=== PATIENT | male | born 1940 | race Caucasian/White ===

== ENCOUNTER 2020-03-09 20:46 | Emergency (ER) | payer MEDICARE ==
[2020-03-09 20:59] VITALS: PULSE 61; RESP 18; TEMP 98.2
--- NOTE | 2020-03-09 21:32 | ED ---
General Adult HPI - General Chief complaint: Shortness of Breath Stated complaint: Poss Covid Time Seen by Provider: 03/09/20 21:01 Source: patient Mode of arrival: EMS Limitations: no limitations - History of Present Illness Initial comments: Dictation was produced using [facility] dictation software. please excuse any grammatical, word or spelling errors. This patient was cared for during a federal and state declared state of emergency secondary to Covid 19 Chief Complaint: 71-year-old male presents today for coronavirus testing History of Present Illness: 71-year-old male who presents today for coronavirus testing. Patient denies any symptoms at this time. He did tell EMS who reported tenderness that he has been having URI type symptoms since October. States that he does have a cough or shortness of breath. He is not feverish. He denies any constitutional symptoms. 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 The ROS documented in this emergency department record has been reviewed and confirmed by me. Those systems with pertinent positive or negative responses have been documented in the HPI. All other systems are other negative and/or noncontributory. PHYSICAL EXAM: General Impression: Alert and oriented x3, not in acute distress HEENT: Normocephalic atraumatic, extra-ocular movements intact, pupils equal and reactive to light bilaterally, mucous membranes moist. Cardiovascular: Heart regular rate and rhythm Chest: Able to complete full sentences, no retractions, no tachypnea Abdomen: abdomen soft, non-tender, non-distended, no organomegaly Musculoskeletal: Pulses present and equal in all extremities, no peripheral edema Motor: no focal deficits noted Neurological: CN II-XII grossly intact, no focal motor or sensory deficits noted Skin: Intact with no visualized rashes Psych: Normal affect and mood ED course: 79-year-old male presents today for request of coronavirus testing. Vital signs upon arrival are within acceptable limits. Physical examination is benign.Chest x-ray shows findings to suggest mild CHF. Pending coronavirus study. Patient is discharge she is notified that he will receive the results in 24-48 hours. Patient continues to endorse that he feels well. He denies any shortness of breath. Patient will be discharged. Review of Systems ROS Statement: Those systems with pertinent positive or pertinent negative responses have been documented in the HPI. ROS Other: All systems not noted in ROS Statement are negative. Past Medical History Past Medical History: GERD/Reflux, Hyperlipidemia, Hypertension History of Any Multi-Drug Resistant Organisms: None Reported Additional Past Surgical History / Comment(s): prosthetic left eye Past Psychological History: No Psychological Hx Reported Smoking Status: Never smoker Past Alcohol Use History: None Reported Past Drug Use History: None Reported General Exam Limitations: no limitations Course Vital Signs 03/09/20 03/09/20 03/09/20 20:48 20:57 21:00 Temperature 98.2 F Pulse Rate 61 Respiratory 18 Rate Blood Pressure 103/71 103/71 O2 Sat by Pulse 96 90 L 100 Oximetry Disposition Clinical Impression: Encounter for laboratory testing for COVID-19 virus Disposition: HOME SELF-CARE Condition: Good Instructions (If sedation given, give patient instructions): Upper Respiratory Infection (ED) Additional Instructions: Please follow-up with cardiology. Your coronavirus testing should result in 24- 48 hours. Please call the emergency department back in [phone] hours to follow- up with test results. Your x-ray today showed findings to suggest congestive heart failure. Please follow up with her primary care physician for outpatient management of this. Is patient prescribed a controlled substance at d/c from ED?: No Referrals: Josemanuel Xiong MD [Primary Care Provider] - 1-2 days Time of Disposition: 22:57
--- NOTE | 2020-03-09 22:02 | XR ---
EXAMINATION TYPE: XR chest 1V portable DATE OF EXAM: 03/09/2020 COMPARISON: NONE HISTORY: Short of breath TECHNIQUE: Single view FINDINGS: Heart is enlarged. There is some pulmonary interstitial edema. There is blunting of the cos tophrenic angles. Bony thorax appears intact. IMPRESSION: Pulmonary interstitial mild edema with pleural effusions and cardiomegaly suggestive of s ome mild chronic congestive heart failure.
[2020-03-09 23:03] VITALS: BP 107/78
== END 2020-03-09 23:43 | disposition home or self-care (01) ==
LOC: EC 20:46
DX: Z20.828 Contact with and (suspected) exposure to other viral communicable diseases (principal)
CPT/HCPCS: 71045; 87635; 99285

== ENCOUNTER 2020-04-11 20:12 | Inpatient (IN) | payer MEDICARE, OTHER ==
[2020-04-11 20:43] LABS: Glucose,Whole Blood 101 mg/dL (75-99)
--- NOTE | 2020-04-11 20:43 | ED ---
General Adult HPI - General Chief complaint: Fall Stated complaint: fall Time Seen by Provider: 04/11/20 20:14 Source: patient, EMS Mode of arrival: EMS Limitations: no limitations - History of Present Illness Initial comments: Dictation was produced using [facility] dictation software. please excuse any grammatical, word or spelling errors. This patient was cared for during a federal and state declared state of emergency secondary to Covid 19 Chief Complaint: 80-year-old male with past medical history of hypertension presents after multiple falls. History of Present Illness: 80-year-old male he presents with multiple falls. Patient states he fell once 2 days ago and today. Patient states that he lives at home by himself. Reports that he was sitting in a chair when all of a sudden he fell to the ground. He didn't strike his head. Denies any loss of consciousness. Patient denies any pain complaints except for some facial pain. Denies any neck pain or extremity pain. Patient is unsure if he syncopized. The ROS documented in this emergency department record has been reviewed and confirmed by me. Those systems with pertinent positive or negative responses have been documented in the HPI. All other systems are other negative and/or noncontributory. PHYSICAL EXAM: General Impression: Alert and oriented x3, not in acute distress HEENT: Prosthetic left eye, ecchymoses of the left face, no lacerations, no septal hematoma extra-ocular movements intact, pupils equal and reactive to light bilaterally, mucous membranes moist. Cardiovascular: Heart regular rate and rhythm Chest: Able to complete full sentences, no retractions, no tachypnea Abdomen: abdomen soft, non-tender, non-distended, no organomegaly Musculoskeletal: Pulses present and equal in all extremities, no peripheral edema Motor: no focal deficits noted Neurological: CN II-XII grossly intact, no focal motor or sensory deficits noted Skin: Intact with no visualized rashes Psych: Normal affect and mood ED course: 80-year-old male presents after fall. He is very disheveled at bedside and has poor social situation and is unlikely able to care for himself. Laboratory evaluation obtained. CBC unremarkable. Coag panel is unremarkable. Metabolic panel shows elevated renal markers concerning for dehydration. Nonspecific elevation of liver enzymes. Troponin of 0.358. Chest x-ray shows no onset right-sided pleural effusion. Computed to mography scan of the head and C-spine shows no acute processes. Pelvis x-rays negative. Patient reevaluated at bedside and continues to deny any symptoms of dyspnea or chest pain. Patient started on heparin for elevated troponin and concern of non-ST segment elevation TN. Patient agreeable with disposition. Discussed patient case with Dr. willett is willing to accept patient's care. EKG interpretation: Ventricular rate 84, sinus rhythm, DC interval 160, QRS 106, QTC 449. No DC prolongation, no QTC prolongation, no ST or T-wave changes noted. Diffuse ST depressions noted in the lateral precordial leads. No old EKG for comparison Repeat EKG was obtained showing no dynamic changes. Ventricular rate 82, normal sinus rhythm,. Interval 170, QRS 108, QTc 464 patient furthermore denies any chest symptoms. - Related Data Home Medications Medication Instructions Recorded Confirmed Aspirin EC [Ecotrin Low Dose] 81 mg PO HS 04/11/20 04/11/20 Thyroid Unknown 1 tab PO DAILY 04/11/20 04/11/20 Allergies Allergy/AdvReac Type Severity Reaction Status Date / Time No Known Allergies Allergy Verified 04/11/20 20:43 Review of Systems ROS Statement: Those systems with pertinent positive or pertinent negative responses have been documented in the HPI. ROS Other: All systems not noted in ROS Statement are negative. Past Medical History Past Medical History: GERD/Reflux, Hyperlipidemia, Hypertension History of Any Multi-Drug Resistant Organisms: None Reported Additional Past Surgical History / Comment(s): prosthetic left eye Past Psychological History: No Psychological Hx Reported Smoking Status: Never smoker Past Alcohol Use History: None Reported Past Drug Use History: None Reported General Exam Limitations: no limitations Course Vital Signs 04/11/20 04/11/20 20:13 21:23 Temperature 99.1 F Pulse Rate 85 76 Respiratory 16 16 Rate Blood Pressure 98/64 105/75 O2 Sat by Pulse 93 L 98 Oximetry Medical Decision Making - Lab Data Result diagrams: 04/11/20 20:26 04/11/20 20:26 Lab Results 04/11/20 04/11/20 04/11/20 Range/Units 20:26 20:26 20:26 WBC 5.9 (3.8-10.6) k/uL RBC 4.35 (4.30-5.90) m/uL Hgb 12.5 L (13.0-17.5) gm/dL Hct 40.3 (39.0-53.0) % MCV 92.6 (80.0-100.0) fL MCH 28.8 (25.0-35.0) pg MCHC 31.1 (31.0-37.0) g/dL RDW 15.4 (11.5-15.5) % Plt Count 123 L (150-450) k/uL Neutrophils % 73 % Lymphocytes % 14 % Monocytes % 8 % Eosinophils % 2 % Basophils % 1 % Neutrophils # 4.3 (1.3-7.7) k/uL Lymphocytes # 0.8 L (1.0-4.8) k/uL Monocytes # 0.5 (0-1.0) k/uL Eosinophils # 0.1 (0-0.7) k/uL Basophils # 0.1 (0-0.2) k/uL Hypochromasia Slight PT 11.8 (9.0-12.0) sec INR 1.2 H (<1.2) APTT 30.2 H (22.0-30.0) sec Sodium 140 (137-145) mmol/L Potassium 4.9 (3.5-5.1) mmol/L Chloride 111 H (98-107) mmol/L Carbon Dioxide 20 L (22-30) mmol/L Anion Gap 9 mmol/L BUN 42 H (9-20) mg/dL Creatinine 1.56 H (0.66-1.25) mg/dL Est GFR (CKD-EPI)AfAm 48 (>60 ml/min/1.73 sqM) Est GFR (CKD-EPI)NonAf 42 (>60 ml/min/1.73 sqM) Glucose 110 H (74-99) mg/dL POC Glucose (mg/dL) (75-99) mg/dL POC Glu [employer] Reviewer ID Plasma Lactic Acid Christian (0.7-2.0) mmol/L Calcium 9.1 (8.4-10.2) mg/dL Magnesium 2.4 H (1.6-2.3) mg/dL Total Bilirubin 1.1 (0.2-1.3) mg/dL AST 167 H (17-59) U/L ALT 210 H (4-49) U/L Alkaline Phosphatase 136 H (38-126) U/L Creatine Kinase 239 H (55-170) U/L Troponin I (0.000-0.034) ng/mL Total Protein 6.9 (6.3-8.2) g/dL Albumin 3.8 (3.5-5.0) g/dL 04/11/20 04/11/20 04/11/20 Range/Units 20:26 20:26 20:41 WBC (3.8-10.6) k/uL RBC (4.30-5.90) m/uL Hgb (13.0-17.5) gm/dL Hct (39.0-53.0) % MCV (80.0-100.0) fL MCH (25.0-35.0) pg MCHC (31.0-37.0) g/dL RDW (11.5-15.5) % Plt Count (150-450) k/uL Neutrophils % % Lymphocytes % % Monocytes % % Eosinophils % % Basophils % % Neutrophils # (1.3-7.7) k/uL Lymphocytes # (1.0-4.8) k/uL Monocytes # (0-1.0) k/uL Eosinophils # (0-0.7) k/uL Basophils # (0-0.2) k/uL Hypochromasia PT (9.0-12.0) sec INR (<1.2) APTT (22.0-30.0) sec Sodium (137-145) mmol/L Potassium (3.5-5.1) mmol/L Chloride (98-107) mmol/L Carbon Dioxide (22-30) mmol/L Anion Gap mmol/L BUN (9-20) mg/dL Creatinine (0.66-1.25) mg/dL Est GFR (CKD-EPI)AfAm (>60 ml/min/1.73 sqM) Est GFR (CKD-EPI)NonAf (>60 ml/min/1.73 sqM) Glucose (74-99) mg/dL POC Glucose (mg/dL) 101 H (75-99) mg/dL POC Glu [employer] Reviewer ID Anika Koroma Plasma Lactic Acid Christian 1.6 (0.7-2.0) mmol/L Calcium (8.4-10.2) mg/dL Magnesium (1.6-2.3) mg/dL Total Bilirubin (0.2-1.3) mg/dL AST (17-59) U/L ALT (4-49) U/L Alkaline Phosphatase (38-126) U/L Creatine Kinase (55-170) U/L Troponin I 0.358 H* (0.000-0.034) ng/mL Total Protein (6.3-8.2) g/dL Albumin (3.5-5.0) g/dL Disposition Clinical Impression: Elevated troponin, Syncopal episodes Disposition: ADMITTED IP TO THIS HOSP Condition: Fair Referrals: Josemanuel Xiong MD [Primary Care Provider] - 1-2 days Decision Time: 22:13
--- NOTE | 2020-04-11 20:45 | CT ---
EXAMINATION TYPE: CT brain claudetteine wo con DATE OF EXAM: 04/11/2020 COMPARISON: HISTORY: Frequent falls. CT DLP: 1383.6 mGycm Automated exposure control for dose reduction was used. TECHNIQUE: CT scan of the head and cervical spine are performed without contrast. FINDINGS: There is no acute intracranial hemorrhage, mass effect, or midline shift identified. The ventricles and sulci are within normal limits in size. The globes are intact and the visualized sin uses are clear. There is cortical atrophy. Periventricular white matter shows patchy low attenuation. Cerebral vascular calcifications are present. Cervical spine is visualized in its entirety from C1 through upper thoracic levels and demonstrates n ear anatomic alignment without evidence of acute fracture or dislocation. There is anterolisthesis gr ebony 1 C4-5. Loss of disc height is present at C4-5, C5-6, C6-7 and C7-T1, there is multilevel spondyl osis. Prevertebral soft tissue appears within normal limits. The C1-C2 articulation is unremarkable. Multilevel facet arthropathy, foraminal encroachment. Incidental note made of a right pleural effusi on greater than left. IMPRESSION: 1. There is no acute fracture or dislocation evident in the cervical spine. 2. No acute intracranial hemorrhage, mass effect, or midline shift is seen. 3. Bilateral pleural effusions right greater than left.
[2020-04-11 20:48] LABS: Basophils # (A) 0.1 k/uL (0-0.2); Basophils % (A) 1 %; Eosinophils # (A) 0.1 k/uL (0-0.7); Eosinophils % (A) 2 %; HCT 40.3 % (39.0-53.0); HGB 12.5 gm/dL (13.0-17.5); Hypochromasia Slight; Lymphocytes # (A) 0.8 k/uL (1.0-4.8); Lymphocytes % (A) 14 %; MCH 28.8 pg (25.0-35.0); MCHC 31.1 g/dL (31.0-37.0); MCV 92.6 fL (80.0-100.0); Mean Platelet Volume 9.9; Monocytes # (A) 0.5 k/uL (0-1.0); Monocytes % (A) 8 %; Neutrophils # (A) 4.3 k/uL (1.3-7.7); Neutrophils % (A) 73 %; Platelet Count 123 k/uL (150-450); RBC 4.35 m/uL (4.30-5.90); RDW 15.4 % (11.5-15.5); WBC 5.9 k/uL (3.8-10.6)
[2020-04-11 21:06] LABS: INR 1.2 (<1.2); Partial Thromboplastin Time 30.2 sec (22.0-30.0); Prothrombin Time 11.8 sec (9.0-12.0)
[2020-04-11 21:08] LABS: Albumin 3.8 g/dL (3.5-5.0); Calcium 9.1 mg/dL (8.4-10.2); Magnesium 2.4 mg/dL (1.6-2.3); Potassium 4.9 mmol/L (3.5-5.1); Total Bilirubin 1.1 mg/dL (0.2-1.3); Total Protein 6.9 g/dL (6.3-8.2)
--- NOTE | 2020-04-11 21:11 | XR ---
EXAMINATION TYPE: XR chest 1V portable DATE OF EXAM: 04/11/2020 COMPARISON: Prior chest x-ray 03/09/2020 HISTORY: Trauma and pain, abnormal chest x-ray TECHNIQUE: Single frontal view of the chest is obtained. FINDINGS: The heart is enlarged. Central vascularity is prominent. There is blunting of the right co stophrenic angle, obscured right hemidiaphragm. Perihilar vascular indistinctness is noted. There is no pneumothorax. IMPRESSION: Correlate for congestive heart failure, probable right pleural effusion.
--- NOTE | 2020-04-11 21:13 | XR ---
AP pelvis HISTORY: Trauma and pain Single frontal view of the pelvis. Patient is rotated. Bone mineralization is reduced. Joint spaces and alignment are maintained. Benign -appearing calcifications are present within the pelvis. Scoliotic curvature is suspected in the lumb ar spine. There are atherosclerotic vascular calcifications present. IMPRESSION: No fracture or dislocation evident.
[2020-04-11] MEDS ORDERED: HEPARIN SODIUM,PORCINE 5,000 UNIT/ML 1 ML VIAL IV PRN (21:25)
[2020-04-11] MEDS ORDERED: HEPARIN SODIUM,PORCINE 5,000 UNIT/ML 1 ML VIAL IV ONE (21:25)
[2020-04-11] MEDS ORDERED: ASPIRIN 81 MG PO STA (21:27)
[2020-04-11] MEDS ORDERED: SODIUM CHLORIDE 0.9% 1,000 ML IV STA (21:28)
[2020-04-11] MEDS: HEPARIN SOD,PORK IN 0.45% NACL 25,000 UNIT in 0.45% NACL 1 250ML.BAG IV SCH (21:42)
[2020-04-12] MEDS ORDERED: NITROGLYCERIN SL TABS 0.4 MG TAB SUBLINGUAL PRN (00:27)
[2020-04-12] MEDS ORDERED: MORPHINE SULFATE 4 MG/ML SYRINGE IV PRN (00:27)
[2020-04-12] MEDS: HEPARIN SOD,PORK IN 0.45% NACL 25,000 UNIT in 0.45% NACL 1 250ML.BAG IV SCH (04:35)
[2020-04-12 09:39] LABS: D-Dimer 0.66 mg/L FEU (<0.60); Partial Thromboplastin Time 90.4 sec (22.0-30.0)
--- NOTE | 2020-04-12 10:46 | ECHOF ---
Referral Reason:elevTrop MEASUREMENTS -------- HEIGHT: 177.8 cm WEIGHT: 84.8 kg BP: 110/80 RVIDd: 3.5 cm (< 3.3) IVSd: 1.4 cm (0.6 - 1.1) LVIDd: 5.3 cm (3.9 - 5.3) LVPWd: 1.2 cm (0.6 - 1.1) IVSs: 1.8 cm LVIDs: 5.0 cm LVPWs: 1.4 cm LA Diam: 4.1 cm (2.7 - 3.8) LAESV Index (A-L): 42.09 ml/m Ao Diam: 3.4 cm (2.0 - 3.7) AV Cusp: 0.6 cm (1.5 - 2.6) MV EXCURSION: 13.536 mm (> 18.000) MV EF SLOPE: 24 mm/s (70 - 150) EPSS: 2.3 cm AV maxP.93 mmHg AV meanP.36 mmHg RAP: 15.00 mmHg RVSP: 54.75 mmHg FINDINGS -------- This was a technically good study. The left ventricular size is normal. There is moderate concentric left ventricular hypertrophy. O verall left ventricular systolic function is severely impaired with, an EF between 20 - 25 %. Basal inferior LV wall motion is hypokinetic. Basal inferoseptal LV wall motion is hypokinetic. Mid inferior LV wall motion is hypokinetic. Mid inferoseptal LV wall motion is hypokinetic. Apical inferior LV wall motion is hypokinetic. Apical septum LV wall motion is hypokinetic. The right ventricle is mildly enlarged. LA is severely dilated >40 ml/m2 The right atrium is normal in size. Interatrial and interventricular septum intact. 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 There is [id number] aortic regurgitation. Moderate to severe aortic stenosis with peak/mean pressure gradient of 37.93mmHg / 18.36mmHg, the aortic valve area by continuity equation is 1.4cm. Peak/mean gradient across the Aortic Valve is 37.93mmHg / 1 8.36mmHg. The mitral valve leaflets are mildly thickened. Mild mitral annular calcification present. Mild m itral regurgitation is present. Mild tricuspid regurgitation present. There is moderate to severe pulmonary hypertension. The rig ht ventricular systolic pressure, as measured by Doppler, is 54.75mmHg. Moderate pulmonic regurgitation. The aortic root size is normal. The inferior vena cava is dilated with poor inspiratory collapse which is consistent with estimated r ight atrial pressure of 15 mmHg. There is no pericardial effusion. CONCLUSIONS -------- 1. This was a technically good study. 2. The left ventricular size is normal. 3. There is moderate concentric left ventricular hypertrophy. 4. Overall left ventricular systolic function is severely impaired with, an EF between 20 - 25 %. 5. Basal inferior LV wall motion is hypokinetic. 6. Basal inferoseptal LV wall motion is hypokinetic. 7. Mid inferior LV wall motion is hypokinetic. 8. Mid inferoseptal LV wall motion is hypokinetic. 9. Apical inferior LV wall motion is hypokinetic. 10. Apical septum LV wall motion is hypokinetic. 11. The right ventricle is mildly enlarged. 12. LA is severely dilated >40 ml/m2 13. The right atrium is normal in size. 14. Interatrial and interventricular septum intact. 15. 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 16. There is [id number] aortic regurgitation. 17. Moderate to severe aortic stenosis with peak/mean pressure gradient of 37.93mmHg / 18.36mmHg, the aortic valve area by continuity equation is 1.4cm. 18. Peak/mean gradient across the Aortic Valve is 37.93mmHg / 18.36mmHg. 19. The mitral valve leaflets are mildly thickened. 20. Mild mitral annular calcification present. 21. Mild mitral regurgitation is present. 22. Mild tricuspid regurgitation present. 23. There is moderate to severe pulmonary hypertension. 24. The right ventricular systolic pressure, as measured by Doppler, is 54.75mmHg. 25. Moderate pulmonic regurgitation. 26. The aortic root size is normal. 27. The inferior vena cava is dilated with poor inspiratory collapse which is consistent with estimat ed right atrial pressure of 15 mmHg. 28. There is no pericardial effusion. FAMILY NURSE: Mayela Graham RDCS
[2020-04-12] MEDS: FUROSEMIDE 10 MG/ML 4 ML VIAL IV SCH ×2 (11:57→21:41)
--- NOTE | 2020-04-12 11:58 | P.HPIM ---
History of Present Illness patient is a 10-year-old male came in because of the syncope and falls patient has bruising all over the face. Patient was comparing of her shots of breath and orthopnea patient does have elevated JVD along with elevated BNP and chest x-ray showing pulmonary edema. Patient has mildly elevated troponinsbut stable implanted 0.358, 0.398 and 0.296 with highly elevated BNP of 16,900. Patient is alert oriented 3. Patient had any fever chills cough. Patient or any chest pain. EKG showing some T-wave inversions in lead 2 L 3 and aVFan echo cardiac exam was ordered a have the echo reports at this time which showed EF of 20-25% with the basal inferior LV motion hypokinesis inferior septal motion hypokinesis and multiple other almost abnormality is consistent with acute microinfarction consistent with changes in the EKG.unsure patient had a syncopal episode but patient is able to provide good histamine appears to that she he had a syncopal episode Review of Systems REVIEW OF SYSTEMS: CONSTITUTIONAL: No fever, no malaise, no fatigue. HEENT: No recent visual problems or hearing problems. Denied any sore throat. CARDIOVASCULAR: No chest pain PND, no palpitations, PULMONARY: no cough, no hemoptysis. GASTROINTESTINAL: No diarrhea, no nausea, no vomiting, no abdominal pain. NEUROLOGICAL: No headaches, no weakness, no numbness. HEMATOLOGICAL: Denies any bleeding or petechiae. GENITOURINARY: Denies any burning micturition, frequency, or urgency. MUSCULOSKELETAL/RHEUMATOLOGICAL: Denies any joint pain, swelling, or any muscle pain. ENDOCRINE: Denies any polyuria or polydipsia. The rest of the 14-point review of systems is negative. Past Medical History Past Medical History: GERD/Reflux, Hyperlipidemia, Hypertension History of Any Multi-Drug Resistant Organisms: None Reported Additional Past Surgical History / Comment(s): prosthetic left eye Additional Past Anesthesia/Blood Transfusion Reaction / Comment(s): Anesthesia insomnia, never recieved blood Past Psychological History: No Psychological Hx Reported Smoking Status: Never smoker Past Alcohol Use History: None Reported Past Drug Use History: None Reported - Past Family History Father Family Medical History: Renal Disease Mother Family Medical History: Renal Disease Medications and Allergies Home Medications Medication Instructions Recorded Confirmed Type Aspirin EC [Ecotrin Low Dose] 81 mg PO HS 04/11/20 04/11/20 History Atorvastatin [Lipitor] 40 mg PO HS 04/12/20 04/12/20 History Famotidine [Pepcid] 20 mg PO HS 04/12/20 04/12/20 History Furosemide [Lasix] 20 mg PO DAILY 04/12/20 04/12/20 History Levothyroxine Sodium [Synthroid] 50 mcg PO DAILY 04/12/20 04/12/20 History Lisinopril [Prinivil] 5 mg PO HS 04/12/20 04/12/20 History Metoprolol Succinate [Toprol XL] 25 mg PO HS 04/12/20 04/12/20 History Multivitamin/Iron/Folic Acid 1 tab PO HS 04/12/20 04/12/20 History [Centrum Adults Tablet] Margie-3 Fatty Acids/Fish Oil [Fish 1 cap PO HS 04/12/20 04/12/20 History Oil 1,000 mg Softgel] Allergies Allergy/AdvReac Type Severity Reaction Status Date / Time No Known Allergies Allergy Verified 04/11/20 20:43 Physical Exam Vitals: Vital Signs Temp Pulse Pulse Resp BP BP Pulse Ox 04/12/20 08:39 97.9 F 85 18 113/69 95 04/12/20 07:36 80 18 110/80 100 04/12/20 05:30 80 18 110/80 100 04/12/20 00:32 80 18 108/75 99 04/11/20 23:39 73 16 98 04/11/20 21:23 76 16 105/75 98 04/11/20 20:13 99.1 F 85 16 98/64 93 L Intake and Output 04/11/20 04/12/20 04/12/20 22:59 06:59 14:59 Intake Total 58.833 45.973 Balance 58.833 45.973 Intake: Intake, IV Titration 58.833 45.973 Amount Heparin Sod,Pork in 0.45% 58.833 45.973 NaCl 25,000 unit In 0.45 % NaCl 1 250ml.bag @ 11. 789 UNITS/KG/HR 10 mls/hr IV .Q24H [facility] Rx#: [id number] Other: Voiding Method Toilet Urinal # Voids 1 Weight 84.822 kg PHYSICAL EXAMINATION: GENERAL: The patient is alert and oriented x3, not in any acute distress. Well developed, well nourished. HEENT: Pupils are round and equally reacting to light. EOMI. No scleral icterus. No conjunctival pallor. Normocephalic, facial bruising. No pharyngeal erythema. No thyromegaly. CARDIOVASCULAR: S1 and S2 present. No murmurs, rubs, or gallops. does have elevated JVD PULMONARY: Chest is clear to auscultation, no wheezing or crackles. ABDOMEN: Soft, nontender, nondistended, normoactive bowel sounds. No palpable organomegaly. MUSCULOSKELETAL: No joint swelling or deformity. EXTREMITIES: No cyanosis, clubbing, or pedal edema. NEUROLOGICAL: Gross neurological examination did not reveal any focal deficits. SKIN: bruises everywhere including facial bruising Results CBC & Chem 7: 04/11/20 20:26 04/11/20 20:26 Labs: Abnormal Lab Results - Last 24 Hours (Table) 04/11/20 04/11/20 04/11/20 Range/Units 20:26 20:26 20:26 Hgb 12.5 L (13.0-17.5) gm/dL Plt Count 123 L (150-450) k/uL Lymphocytes # 0.8 L (1.0-4.8) k/uL INR 1.2 H (<1.2) APTT 30.2 H (22.0-30.0) sec D-Dimer (<0.60) mg/L FEU Chloride 111 H (98-107) mmol/L Carbon Dioxide 20 L (22-30) mmol/L BUN 42 H (9-20) mg/dL Creatinine 1.56 H (0.66-1.25) mg/dL Glucose 110 H (74-99) mg/dL POC Glucose (mg/dL) (75-99) mg/dL Magnesium 2.4 H (1.6-2.3) mg/dL AST 167 H (17-59) U/L ALT 210 H (4-49) U/L Alkaline Phosphatase 136 H (38-126) U/L Creatine Kinase 239 H (55-170) U/L Troponin I (0.000-0.034) ng/mL 04/11/20 04/11/20 04/12/20 Range/Units 20:26 20:41 02:52 Hgb (13.0-17.5) gm/dL Plt Count (150-450) k/uL Lymphocytes # (1.0-4.8) k/uL INR (<1.2) APTT >200.0 H* (22.0-30.0) sec D-Dimer (<0.60) mg/L FEU Chloride (98-107) mmol/L Carbon Dioxide (22-30) mmol/L BUN (9-20) mg/dL Creatinine (0.66-1.25) mg/dL Glucose (74-99) mg/dL POC Glucose (mg/dL) 101 H (75-99) mg/dL Magnesium (1.6-2.3) mg/dL AST (17-59) U/L ALT (4-49) U/L Alkaline Phosphatase (38-126) U/L Creatine Kinase (55-170) U/L Troponin I 0.358 H* (0.000-0.034) ng/mL 04/12/20 04/12/20 04/12/20 Range/Units 02:52 09:02 09:02 Hgb (13.0-17.5) gm/dL Plt Count (150-450) k/uL Lymphocytes # (1.0-4.8) k/uL INR (<1.2) APTT 90.4 H (22.0-30.0) sec D-Dimer 0.66 H (<0.60) mg/L FEU Chloride (98-107) mmol/L Carbon Dioxide (22-30) mmol/L BUN (9-20) mg/dL Creatinine (0.66-1.25) mg/dL Glucose (74-99) mg/dL POC Glucose (mg/dL) (75-99) mg/dL Magnesium (1.6-2.3) mg/dL AST (17-59) U/L ALT (4-49) U/L Alkaline Phosphatase (38-126) U/L Creatine Kinase (55-170) U/L Troponin I 0.398 H* 0.296 H* (0.000-0.034) ng/mL Thrombosis Risk Factor Assmnt - Choose All That Apply Any of the Below Risk Factors Present?: Yes Each Factor Represents 1 point: Obesity (BMI >25) Other Risk Factors: Yes Each Risk Factor Represents 3 Points: Age 75 years or older Other congenital or acquired thrombophilia - If yes, enter type in comment: No Thrombosis Risk Factor Assessment Total Risk Factor Score: 4 Thrombosis Risk Factor Assessment Level: Moderate Risk Assessment and Plan Plan: -fall probably a syncopal episode from heart failure exacerbation. Workup of the CT head cervical spine is negative for any dislocation or fracture. -congestive heart failurechronic systolic dysfunction EF of 20-25%: Patient appears to have three-vessel disease in the past and need to be evaluated for CABG. Patient was seen at [facility] in the past.cardiology will evaluate the patient patient was started on Lasix 40 mg IV twice a day. -coronary Artery disease with three-vessel disease possible non-ST nourished microinfarction patient is presently on heparin cardiology will evaluate the patient -elevated liver enzymes secondary to hepatic congestion we'll repeat the liver enzymes again tomorrow -Acute renal failure probably prerenal azotemia from heart failure expected to improve with Lasix -hypothyroidism -Hyperlipidemia
--- NOTE | 2020-04-12 12:30 | P.CRDCN ---
History of Present Illness Consult date: 04/12/20 Requesting physician: Gustavo E Sheet Consult reason: congestive heart failure Chief complaint: Syncope History of present illness: This is a pleasant 80-year-old gentleman with documented history of hypertension, hyperlipidemia, nondiabetic, he is a nonsmoker. He follows with Dr. Roy in the office. He underwent a recent CLAUDIA and left heart catheterization at [facility] in December of this year, the CLAUDIA did reveal severe aortic stenosis, heart catheterization revealed triple vessel coronary artery disease. The plan was for the patient to arrange to see cardiothoracic surgery within the next few months. Patient presented to the hospital on this admission following a syncopal episode 2. According to the patient, he fell to the ground on 2 separate occasions, he states that he felt very dizzy and lightheaded prior to his fall, he does feel also that he lost con sciousness. He denies having any chest discomfort. His chest x-ray on presentation here showed congestive heart failure with possible right-sided pleural effusion, AP pelvis did not reveal any acute fracture. His EKG on presentation here showed a normal sinus rhythm with PACs and inferior lateral ST-T wave changes. Blood pressure 104/60 with a heart rate in the 80s to 90s, afebrile, 96% on room air. White blood cell count 5.9, hemoglobin 12.5, platelet count 123. D-dimer 0.66. Sodium 140, potassium 4.9, BUN 42, creatinine 1.5. Magnesium 2.4, AST 167, ALT 210, alk phos 136, troponin 0.35, 0.39, 0.29. BNP level 16,900. Past Medical History Past Medical History: GERD/Reflux, Hyperlipidemia, Hypertension History of Any Multi-Drug Resistant Organisms: None Reported Additional Past Surgical History / Comment(s): prosthetic left eye Additional Past Anesthesia/Blood Transfusion Reaction / Comment(s): Anesthesia insomnia, never recieved blood Past Psychological History: No Psychological Hx Reported Smoking Status: Never smoker Past Alcohol Use History: None Reported Past Drug Use History: None Reported - Past Family History Father Family Medical History: Renal Disease Mother Family Medical History: Renal Disease Medications and Allergies Home Medications Medication Instructions Recorded Confirmed Type Aspirin EC [Ecotrin Low Dose] 81 mg PO HS 04/11/20 04/11/20 History Atorvastatin [Lipitor] 40 mg PO HS 04/12/20 04/12/20 History Famotidine [Pepcid] 20 mg PO HS 04/12/20 04/12/20 History Furosemide [Lasix] 20 mg PO DAILY 04/12/20 04/12/20 History Levothyroxine Sodium [Synthroid] 50 mcg PO DAILY 04/12/20 04/12/20 History Lisinopril [Prinivil] 5 mg PO HS 04/12/20 04/12/20 History Metoprolol Succinate [Toprol XL] 25 mg PO HS 04/12/20 04/12/20 History Multivitamin/Iron/Folic Acid 1 tab PO HS 04/12/20 04/12/20 History [Centrum Adults Tablet] Zenda-3 Fatty Acids/Fish Oil [Fish 1 cap PO HS 04/12/20 04/12/20 History Oil 1,000 mg Softgel] Allergies Allergy/AdvReac Type Severity Reaction Status Date / Time No Known Allergies Allergy Verified 04/11/20 20:43 Physical Exam Vitals: Vital Signs Temp Pulse Pulse Resp BP BP Pulse Ox 04/12/20 11:27 97.7 F 92 18 104/62 96 04/12/20 08:39 97.9 F 85 18 113/69 95 04/12/20 07:36 80 18 110/80 100 04/12/20 05:30 80 18 110/80 100 04/12/20 00:32 80 18 108/75 99 04/11/20 23:39 73 16 98 04/11/20 21:23 76 16 105/75 98 04/11/20 20:13 99.1 F 85 16 98/64 93 L Intake and Output 04/11/20 04/12/20 04/12/20 22:59 06:59 14:59 Intake Total 58.833 45.973 Balance 58.833 45.973 Intake: Intake, IV Titration 58.833 45.973 Amount Heparin Sod,Pork in 0.45% 58.833 45.973 NaCl 25,000 unit In 0.45 % NaCl 1 250ml.bag @ 11. 789 UNITS/KG/HR 10 mls/hr IV .Q24H [facility] Rx#: [id number] Other: Voiding Method Toilet Urinal # Voids 1 Weight 84.822 kg PHYSICAL EXAMINATION: GENERAL: 80-year-old gentleman in no acute distress at the time of my examination HEENT: Head is atraumatic, normocephalic. Pupils equal, round. Sclera anicteric. Conjunctiva are clear. Mucous membranes of the mouth are moist. Neck is supple. There is elevated jugular venous pressure. No carotid bruit is heard. HEART EXAMINATION: Heart S1-S2 systolic ejection murmur is heard CHEST EXAMINATION: On's reveal diminished air entry to the bases bilaterally ABDOMEN: Soft, nontender. Bowel sounds are heard. No organomegaly noted. EXTREMITIES: 2+ peripheral pulses with evidence of peripheral edema and no calf tenderness noted. NEUROLOGIC patient is awake, alert and oriented 3 . Results 04/11/20 20:04/11/20 20: Cardiac Enzymes 04/11/20 04/11/20 04/12/20 Range/Units 20: 20: 02:52 AST 167 H (17-59) U/L Troponin I 0.358 H* 0.398 H* (0.000-0.034) ng/mL 04/12/20 Range/Units 09:02 AST (17-59) U/L Troponin I 0.296 H* (0.000-0.034) ng/mL Coagulation 04/11/20 04/12/20 04/12/20 Range/Units : 02:52 09:02 PT 11.8 (9.0-12.0) sec APTT 30.2 H >200.0 H* 90.4 H (22.0-30.0) sec CBC 04/11/20 Range/Units 20: WBC 5.9 (3.8-10.6) k/uL RBC 4.35 (4.30-5.90) m/uL Hgb 12.5 L (13.0-17.5) gm/dL Hct 40.3 (39.0-53.0) % Plt Count 123 L (150-450) k/uL Comprehensive Metabolic Panel 04/11/20 Range/Units 20: Sodium 140 (137-145) mmol/L Potassium 4.9 (3.5-5.1) mmol/L Chloride 111 H (98-107) mmol/L Carbon Dioxide 20 L (22-30) mmol/L BUN 42 H (9-20) mg/dL Creatinine 1.56 H (0.66-1.25) mg/dL Glucose 110 H (74-99) mg/dL Calcium 9.1 (8.4-10.2) mg/dL AST 167 H (17-59) U/L ALT 210 H (4-49) U/L Alkaline Phosphatase 136 H (38-126) U/L Total Protein 6.9 (6.3-8.2) g/dL Albumin 3.8 (3.5-5.0) g/dL Current Medications Generic Name Dose Route Start Last Admin Trade Name Freq PRN Reason Stop Dose Admin Aspirin 81 mg 04/13/20 09:00 Aspirin PO DAILY [facility] Atorvastatin Calcium 40 mg 04/12/20 21:00 Lipitor PO HS [facility] Famotidine 20 mg 04/12/20 21:00 Pepcid PO HS [facility] Furosemide 40 mg 04/12/20 11:00 04/12/20 11:57 Lasix IV 40 mg Q12HR [facility] Administration Heparin Sodium (Porcine) 0 unit 04/11/20 21:25 Heparin IV PER PROTOCOL PRN Low PTT Protocol Heparin Sodium/Sodium Chloride 250 mls @ 10 mls/hr 04/11/20 21:30 04/12/20 10:45 25,000 unit/ Sodium Chloride IV 6.789 units/kg/hr .Q24H [facility] 5.759 mls/hr Titration Protocol 11.789 UNITS/KG/HR Levothyroxine Sodium 50 mcg 04/13/20 06:30 Synthroid PO 0630 [facility] Metoprolol Succinate 25 mg 04/12/20 21:00 Toprol Xl PO HS [facility] Nitroglycerin 0.4 mg 04/12/20 00:27 Nitrostat SUBLINGUAL Q5M PRN Chest Pain Intake and Output 04/11/20 04/12/20 04/12/20 22:59 06:59 14:59 Intake Total 58.833 45.973 Balance 58.833 45.973 Intake: Intake, IV Titration 58.833 45.973 Amount Heparin Sod,Pork in 0.45% 58.833 45.973 NaCl 25,000 unit In 0.45 % NaCl 1 250ml.bag @ 11. 789 UNITS/KG/HR 10 mls/hr IV .Q24H [facility] Rx#: [id number] Other: Voiding Method Toilet Urinal # Voids 1 Weight 84.822 kg 04/11/20 20:26 04/11/20 20:26 EKG Interpretations (text) EKG shows a normal sinus rhythm with PACs, inferior lateral ST-T wave changes. Assessment and Plan Plan: Assessment and plan #1 systolic congestive heart failure acute on chronic #2 syncopal episodes #3 coronary artery disease with multivessel CAD by cath performed in December #4 severe aortic stenosis #5 hypertension #6 hyperlipidemia #7 abnormal troponin, likely secondary to supply and demand mismatch Plan We will start the patient on IV Lasix, obtain an echocardiogram with Doppler study. The patient's LV function in the past has been known to be poor. Check a d-dimer. We will also consult with cardiothoracic surgery for the patient's multivessel coronary artery disease and severe aortic stenosis.Further recommendations to follow. DNP note has been reviewed, I agree with a documented findings and plan of care. Patient was seen and examined.
[2020-04-12 14:01] LABS: Appearance,Urine Clear (Clear); Bilirubin,Urine Negative (Negative); Blood,Urine Negative (Negative); Color,Urine Yellow; Glucose,Urine (UA) Negative (Negative); Ketones,Urine Negative (Negative); Leukocyte Esterase,Urine Negative (Negative); Nitrite,Urine Negative (Negative); Protein,Urine Trace (Negative); Specific Gravity,Urine 1.016 (1.001-1.035); Urobilinogen,Urine <2.0 mg/dL (<2.0)
[2020-04-12] MEDS: METOPROLOL SUCCINATE (ER) 25 MG TAB.ER.24H PO SCH (21:40)
[2020-04-12] MEDS: FAMOTIDINE 20 MG TAB PO SCH (21:41)
[2020-04-12] MEDS: ATORVASTATIN 40 MG TAB PO SCH (21:41)
[2020-04-13] MEDS: LEVOTHYROXINE 50 MCG TAB PO SCH (07:04)
--- NOTE | 2020-04-13 07:19 | P.GSCN ---
<Arpita Zavala - Last Filed: 04/13/20 15:30> History of Present Illness Consult date: 04/13/20 Reason for Consult: Triple-vessel coronary artery disease and severe aortic stenosis Requesting physician: Charline Pimentel History of present illness: This is a 80-year-old gentleman who follows on an outpatient basis with Dr. Xiong for primary care and Dr. Chappell for cardiology. He has a previous medical history of known coronary artery disease and aortic stenosis, hypertension, hyperlipidemia, hypothyroid, peripheral artery disease, and family history of heart disease. 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 Apparently he was seen in December 2019 at [facility] and underwent heart catheterization revealing triple-vessel coronary artery disease as well as transesophageal echocardiogram revealing severe aortic stenosis. He was to follow-up with cardiothoracic surgery on an outpatient basis within a few months of discharge. He presented to [facility] emergency room yesterday after syncopal episode 2 with possible loss of consciousness. He stated he did feel a little lightheaded and dizzy prior to his falls, denied any chest pain, shortness of breath, or any other symptomatology. He has quite a bit of ecchymosis across his face. CT of the head and cervical spine were performed demonstrating no acute fractures or intracranial hemorrhage. Chest x-ray demonstrated cardiomegaly, right pleural effusion. EKG showed sinus rhythm with PACs, inferior lateral ST changes. WBC 5.9, hemoglobin 12.5, INR 1.2, BUN 42, creatinine 1.56, lactic acid 1.6, AST 167 , ALT 210, CK 239, BNP 16,900, and troponin elevation 0.358. The patient was admitted for acute systolic heart failure and non-STEMI with consultation placed to cardiology. Transthoracic echocardiogram was completed demonstrating severely impaired left ventricular systolic function with EF 20-25%, moderate left ventricular hypertrophy, hypokinetic LV wall motion, dilated left atrium, mild to moderate aortic regurgitation, moderate to severe aortic stenosis with peak/mean gradient 37.93 mmHg/18.36 mmHg, aortic valve area 1.47 m, mild mitral annular calcification with mild mitral regurgitation, mild tricuspid regurgitation, moderate to severe pulmonary hypertension with RVSP 54.75 mmHg, and moderate pulmonic regurgitation. Due to his history consultation was placed to Dr. Desai from cardiothoracic surgery for recommendations. Review of Systems Review of systems was completed and was negative except as noted - EENT Ears: bilateral: decreased hearing - Cardiovascular Reports as per HPI, Reports leg edema, Reports lightheadedness, Reports syncope Past Medical History Past Medical History: Coronary Artery Disease (CAD), Heart Failure, GERD/Reflux, Hyperlipidemia, Hypertension, Myocardial Infarction (IA), Syncope Additional Past Medical History / Comment(s): Aortic stenosis History of Any Multi-Drug Resistant Organisms: None Reported Past Surgical History: Heart Catheterization Additional Past Surgical History / Comment(s): prosthetic left eye Additional Past Anesthesia/Blood Transfusion Reaction / Comm: Anesthesia i nsomnia, never recieved blood Past Psychological History: No Psychological Hx Reported Smoking Status: Never smoker Past Alcohol Use History: None Reported Past Drug Use History: None Reported - Past Family History Father Family Medical History: Renal Disease Mother Family Medical History: Congestive Heart Failure (CHF), Renal Disease Brother(s) Additional Family Medical History / Comment(s): Valve replacement Sister(s) Family Medical History: AICD/Pacemaker Medications and Allergies Home Medications Medication Instructions Recorded Confirmed Type Aspirin EC [Ecotrin Low Dose] 81 mg PO HS 04/11/20 04/11/20 History Atorvastatin [Lipitor] 40 mg PO HS 04/12/20 04/12/20 History Famotidine [Pepcid] 20 mg PO HS 04/12/20 04/12/20 History Furosemide [Lasix] 20 mg PO DAILY 04/12/20 04/12/20 History Levothyroxine Sodium [Synthroid] 50 mcg PO DAILY 04/12/20 04/12/20 History Lisinopril [Prinivil] 5 mg PO HS 04/12/20 04/12/20 History Metoprolol Succinate [Toprol XL] 25 mg PO HS 04/12/20 04/12/20 History Multivitamin/Iron/Folic Acid 1 tab PO HS 04/12/20 04/12/20 History [Centrum Adults Tablet] Pillager-3 Fatty Acids/Fish Oil [Fish 1 cap PO HS 04/12/20 04/12/20 History Oil 1,000 mg Softgel] Allergies Allergy/AdvReac Type Severity Reaction Status Date / Time No Known Allergies Allergy Verified 04/11/20 20:43 Surgical - Exam Vital Signs Temp Pulse Resp BP Pulse Ox 99.1 F 85 16 98/64 93 L 04/11/20 20:13 04/11/20 20:13 04/11/20 20:13 04/11/20 20:13 04/11/20 20:13 - General well developed, well nourished, no distress, no pain, chronically ill - Eyes Left prosthetic eye normal ocular movement - ENT decreased hearing, poor senior care - Neck no masses, no bruits, trachea midline - Respiratory Lungs sounds diminished bilaterally. Respirations even, nonlabored. Currently on 2 L nasal cannula with oxygen saturation 95%. No chest wall deformities. No clubbing or cyanosis present. - Cardiovascular S1, S2 present, systolic murmur present. Regular rate and rhythm, sinus rhythm on telemetry. Palpable peripheral pulses bilaterally. Bilateral lower extremity 2-3+ edema present. - Abdomen Abdomen: soft, non tender, bowel sounds - Genitourinary Deferred - Rectum Deferred - Integumentary Skin warm and dry. Ecchymosis present over majority of his face. Bilateral lower extremities with multiple areas of excoriation - Neurologic normal coordination, normal sensation - Musculoskeletal normal posture - Psychiatric oriented to time, oriented to person, oriented to place, speech is normal, memory intact Results - Labs 04/13/20 06:58 04/13/20 06:58 Abnormal Lab Results - Last 24 Hours (Table) 04/12/20 04/12/20 04/12/20 Range/Units 09:02 09:02 13:00 APTT 90.4 H (22.0-30.0) sec D-Dimer 0.66 H (<0.60) mg/L FEU Troponin I 0.296 H* (0.000-0.034) ng/mL Urine Protein Trace H (Negative) 04/12/20 Range/Units 16:29 APTT 54.1 H (22.0-30.0) sec D-Dimer (<0.60) mg/L FEU Troponin I (0.000-0.034) ng/mL Urine Protein (Negative) - Imaging Chest x-ray: report reviewed, image reviewed EKG: image reviewed Assessment and Plan Assessment: 1. Triple-vessel coronary artery disease, non-STEMI this admission 2. Acute on chronic systolic heart failure 3. Severe aortic stenosis, mild MR with mild MAC, mild TR, moderate to severe pulmonary hypertension, moderate pulmonary regurgitation 4. Acute kidney injury 5. Syncopal episode 2 6. Elevated transaminases 7. History of hypertension 8. History of hyperlipidemia 9. Hypothyroid 10. Family history of heart disease and kidney disease Plan: The patient was seen and examined at the bedside. Chart/diagnostics were reviewed. The case was discussed with Dr. Desai, however heart catheterization films and transesophageal echocardiogram films were not available. We did re quest films from [facility], Dr. Tavarez reviewed the films this morning. We will obtain CT scan of the chest to evaluate ascending aortic calcification, carotid doppler studies and pulmonary function testing. If patient is deemed appropriate for valve surgery he will need dental clearance as he has not seen a dentist in over a year. Management of other comorbidities per primary care and cardiology. Further recommendations to follow. Thank you for this consult. We look forward to working with you in the care of your patient. Time with Patient: Greater than 30 <Varsha Tavarez - Last Filed: 04/14/20 08:30> Surgical - Exam Vital Signs Temp Pulse Resp BP Pulse Ox 99.1 F 85 16 98/64 93 L 04/11/20 20:13 04/11/20 20:13 04/11/20 20:13 04/11/20 20:13 04/11/20 20:13 Results - Labs 04/13/20 06:58 04/14/20 07:14 Abnormal Lab Results - Last 24 Hours (Table) 04/13/20 04/13/20 04/13/20 Range/Units 06:58 06:58 06:58 BUN 38 H (9-20) mg/dL Creatinine 1.30 H (0.66-1.25) mg/dL Hemoglobin A1c 6.6 H (4.0-6.0) % Total Bilirubin 1.7 H (0.2-1.3) mg/dL AST 117 H (17-59) U/L ALT 166 H (4-49) U/L TSH 16.700 H (0.465-4.680) mIU/L Free T4 0.70 L (0.78-2.19) ng/dL 04/14/20 Range/Units 07:14 BUN 35 H (9-20) mg/dL Creatinine (0.66-1.25) mg/dL Hemoglobin A1c (4.0-6.0) % Total Bilirubin (0.2-1.3) mg/dL AST (17-59) U/L ALT (4-49) U/L TSH (0.465-4.680) mIU/L Free T4 (0.78-2.19) ng/dL Microbiology - Last 24 Hours (Table) 04/13/20 11:22 Nasal Screen MRSA/MSSA - Preliminary Nasal Swab Diabetes panel 04/13/20 04/13/20 04/14/20 Range/Units 06:58 06:58 07:14 Sodium 143 141 (137-145) mmol/L Potassium 4.4 4.2 (3.5-5.1) mmol/L Chloride 107 104 (98-107) mmol/L Carbon Dioxide 27 30 (22-30) mmol/L BUN 38 H 35 H (9-20) mg/dL Creatinine 1.30 H 1.15 (0.66-1.25) mg/dL Glucose 91 97 (74-99) mg/dL Hemoglobin A1c 6.6 H (4.0-6.0) % Calcium 8.6 9.0 (8.4-10.2) mg/dL AST 117 H (17-59) U/L ALT 166 H (4-49) U/L Alkaline Phosphatase 115 (38-126) U/L Total Protein 6.6 (6.3-8.2) g/dL Albumin 3.5 (3.5-5.0) g/dL Triglycerides 46 (<150) mg/dL HDL Cholesterol 46 (40-60) mg/dL Thyroid panel 04/13/20 Range/Units 06:58 TSH 16.700 H (0.465-4.680) mIU/L Calcium panel 04/13/20 04/14/20 Range/Units 06:58 07:14 Calcium 8.6 9.0 (8.4-10.2) mg/dL Albumin 3.5 (3.5-5.0) g/dL Pituitary panel 04/13/20 04/13/20 04/14/20 Range/Units 06:58 06:58 07:14 Sodium 143 141 (137-145) mmol/L Potassium 4.4 4.2 (3.5-5.1) mmol/L Chloride 107 104 (98-107) mmol/L Carbon Dioxide 27 30 (22-30) mmol/L BUN 38 H 35 H (9-20) mg/dL Creatinine 1.30 H 1.15 (0.66-1.25) mg/dL Glucose 91 97 (74-99) mg/dL Calcium 8.6 9.0 (8.4-10.2) mg/dL TSH 16.700 H (0.465-4.680) mIU/L Adrenal panel 04/13/20 04/14/20 Range/Units 06:58 07:14 Sodium 143 141 (137-145) mmol/L Potassium 4.4 4.2 (3.5-5.1) mmol/L Chloride 107 104 (98-107) mmol/L Carbon Dioxide 27 30 (22-30) mmol/L BUN 38 H 35 H (9-20) mg/dL Creatinine 1.30 H 1.15 (0.66-1.25) mg/dL Glucose 91 97 (74-99) mg/dL Calcium 8.6 9.0 (8.4-10.2) mg/dL Total Bilirubin 1.7 H (0.2-1.3) mg/dL AST 117 H (17-59) U/L ALT 166 H (4-49) U/L Alkaline Phosphatase 115 (38-126) U/L Total Protein 6.6 (6.3-8.2) g/dL Albumin 3.5 (3.5-5.0) g/dL Assessment and Plan Plan: Pateint seen and examined. Cath and echo from [facility] reviewed. Severe proximal calcific left sided CAD and occluded RCA with severe . Also calcification Ascending aorta on CT Scan however there is room for potential clamping.Patient currently in CHF. Poor protoplasm with skin sloughing. No social support as he lives alone and has one sister in [place]. Hypothyroid by lab values and even clinically. I seriously doubt that this gentelman would be a surgical candidate for conventional AVR/CABG and would recommend medical optimization as an option of PCI/atherectomy (CSI) followed by TAVR is potentially explored. Discussed with Dr Cerda. Varsha Tavarez MD.
[2020-04-13] MEDS: HEPARIN SOD,PORK IN 0.45% NACL 25,000 UNIT in 0.45% NACL 1 250ML.BAG IV SCH (07:31)
[2020-04-13] MEDS: FUROSEMIDE 10 MG/ML 4 ML VIAL IV SCH ×3 (07:32→20:09)
[2020-04-13] MEDS: ASPIRIN 81 MG PO SCH (07:32)
[2020-04-13 08:02] LABS: HCT 39.5 % (39.0-53.0); HGB 12.6 gm/dL (13.0-17.5); Hypochromasia Moderate; MCHC 31.8 g/dL (31.0-37.0); MCV 94.2 fL (80.0-100.0); Mean Platelet Volume 9.9; Platelet Count 128 k/uL (150-450); RBC 4.19 m/uL (4.30-5.90); RDW 15.5 % (11.5-15.5); WBC 6.1 k/uL (3.8-10.6)
[2020-04-13 08:28] LABS: Albumin 3.5 g/dL (3.5-5.0); Calcium 8.6 mg/dL (8.4-10.2); Potassium 4.4 mmol/L (3.5-5.1); Total Bilirubin 1.7 mg/dL (0.2-1.3); Total Protein 6.6 g/dL (6.3-8.2)
[2020-04-13] MEDS ORDERED: ASPIRIN 325 MG TAB PO SCH (09:00)
--- NOTE | 2020-04-13 10:51 | US ---
EXAMINATION TYPE: US carotid duplex BILAT DATE OF EXAM: 04/13/2020 COMPARISON: CT cervical spine April 11, 2020 CLINICAL HISTORY: assess carotid disease. EXAM MEASUREMENTS: RIGHT: Peak Systolic Velocity (PSV) cm/sec ----- Right CCA: 38.4 ----- Right ICA: 86.6 ----- Right ECA: 45.5 ICA/CCA ratio: 2.3 RIGHT: End Diastole cm/sec ----- Right CCA: 37.0 ----- Right ICA: 30.9 ----- Right ECA: 34.5 LEFT: Peak Systolic Velocity (PSV) cm/sec ----- Left CCA: 37.0 ----- Left ICA: 178.3/BULB ----- Left ECA: 34.5 ICA/CCA ratio: 4.8 LEFT: End Diastole cm/sec ----- Left CCA: 8.2 ----- Left ICA: 47.5 ----- Left ECA: 9.0 VERTEBRALS (direction of flow): Right Vertebral: Antegrade Left Vertebral: Antegrade Rhythm: Arrhythmia Severe plaque bilaterally redemonstrated which correlates with recent CT cervical spine study. Abnorm al velocities left internal carotid artery. Arrhythmia noted during real-time scanning per technologi st documented on images saved. IMPRESSION: Severe atherosclerotic change bilaterally with hemodynamically significant stenosis gr eater than 70% suspected on the left. Consider further investigation with CTA/MRA or direct catheter angiogram. Arrhythmia noted. Correlate clinically. Criteria for Assigning % of Stenosis / Diameter reduction (Estimation based on the indirect measurements of the internal carotid artery velocities (ICA PSV). 1. Normal (no stenosis)=ICA PSV < 125 cm/s: ratio < 2.0: ICA EDV<40 cm/s. 2. Less than 50% stenosis=ICA PSV < 125 cm/s: ratio < 2.0: ICA EDV<40 cm/s. 3. 50 to 69% stenosis=ICA PSV of 125 to 230 cm/s: ration 2.0 ? 4.0: ICA EDV 40-100 cm/s. 4. Greater than 70% stenosis to near occlusion= ICA PSV > 230 cm/s: ratio > 4.0: ICA EDV > 100 cm/s. 5. Near occlusion= ICA PSV velocities may be low or undetectable: variable ratio and ICA EDV. 6. Total occlusion=unable to detect flow.
--- NOTE | 2020-04-13 11:20 | CT ---
EXAMINATION TYPE: CT chest wo con DATE OF EXAM: 04/13/2020 COMPARISON: Chest x-ray 2 days ago HISTORY: Assess ascending aorta calcification CT DLP: 453 mGycm. Automated Exposure Control for Dose Reduction was Utilized. TECHNIQUE: CT scan of the thorax is performed without IV contrast. FINDINGS: Examination is suboptimal as there is significant respiratory motion artifact degradation, patient unable to hold breath. LUNGS: There are persistent small to moderate-sized right greater than left pleural effusions with as sociated compressive atelectasis. There is central bilateral groundglass opacity consistent with alve olar edema. No pneumothorax bilaterally.. MEDIASTINUM: Lack of IV contrast is noted to limit evaluation for mediastinal and especially hilar ad enopathy. There are no definitive greater than 1 cm hilar or mediastinal lymph nodes. No significan t pericardial effusion is seen. Enlarged main pulmonary artery is 3.6 cm axial image 26, CT findings consistent with underlying pulmonary artery hypertension. Adjacent ascending aorta measures up to 4.0 cm in diameter. Mild to moderate calcified plaque of the aortic arch and descending aorta. Severe th ree-vessel coronary artery calcification and/or stents, correlate clinically. Fairly severe calcifica tion at level of the mitral and aortic valve leaflets. Persistent cardiomegaly. No aneurysm in the ar ch or descending thoracic aorta. OTHER: Moderate multilevel spurring in the mid to lower thoracic spine. IMPRESSION: Findings consistent with CHF exacerbation remain present as there is cardiomegaly with sm all to moderate right greater than left pleural effusions and mild to moderate bilateral alveolar payal ma.
--- NOTE | 2020-04-13 13:22 | P.PN ---
Subjective Patient is a pleasant 10-year-old gentleman came in after a fall found to be in heart failure exacerbation. Patient had coronary artery disease and a major three-vessel disease patient is being evaluated by cardiac thoracic surgery patient heart failure symptoms improved patient blood pressure is borderline and low patient has EF of around 20-25% presently on Lasix liver enzymes are bit better and the serum creatinine is bit better with Lasix. TSH is elevated will obtain T4 levels, patient underwent bilateral carotid Doppler and echo a CT th orax of the part of workup for carotid artery bypass grafting carotid Doppler showed 70% stenosis on the left side. Constitutional: Denied any fatigue denied any fever. Cardio vascular: denied any chest pain, palpitations Gastrointestinal denied any nausea vomiting Pulmonary: Denied any shortness of breath cough Neurologic denied any new focal deficits All inpatient medications were reviewed and appropriate changes in these medications as dictated in the interval history and assessment and plan. Objective - Vital Signs Vital signs: Vital Signs Temp 97.5 F L 04/13/20 11:13 Pulse 82 04/13/20 11:13 Resp 18 04/13/20 11:13 BP 96/54 04/13/20 11:13 Pulse Ox 94 L 04/13/20 11:13 Intake & Output 04/12/20 04/13/20 04/13/20 18:59 06:59 18:59 Intake Total 562.639 345.198 Output Total 750 1400 301 Balance -187.361 -1400 44.198 Weight 83.2 kg Intake: Intake, IV Titration 82.639 105.198 Amount Heparin Sod,Pork in 0.45% 82.639 105.198 NaCl 25,000 unit In 0.45 % NaCl 1 250ml.bag @ 11. 789 UNITS/KG/HR 10 mls/hr IV .Q24H [facility] Rx#: [id number] Oral 480 240 Output: Urine 750 1400 300 Stool 1 Other: Voiding Method Toilet Toilet Toilet Urinal Urinal Urinal # Voids 1 1 1 # Bowel Movements 3 - Exam PHYSICAL EXAMINATION: GENERAL: The patient is alert and oriented x3, not in any acute distress. Well developed, well nourished. HEENT: Pupils are round and equally reacting to light. EOMI. No scleral icterus. No conjunctival pallor. Normocephalic, facial bruising. No pharyngeal erythema. No thyromegaly. CARDIOVASCULAR: S1 and S2 present. No murmurs, rubs, or gallops. does have elevated JVD PULMONARY: Chest is clear to auscultation, no wheezing or crackles. ABDOMEN: Soft, nontender, nondistended, normoactive bowel sounds. No palpable organomegaly. MUSCULOSKELETAL: No joint swelling or deformity. EXTREMITIES: No cyanosis, clubbing, or pedal edema. NEUROLOGICAL: Gross neurological examination did not reveal any focal deficits. SKIN: bruises everywhere including facial bruising - Labs CBC & Chem 7: 04/13/20 06:58 04/13/20 06:58 Labs: Abnormal Lab Results - Last 24 Hours (Table) 04/12/20 04/12/20 04/13/20 Range/Units 13:00 16:29 06:58 RBC (4.30-5.90) m/uL Hgb (13.0-17.5) gm/dL Plt Count (150-450) k/uL APTT 54.1 H (22.0-30.0) sec BUN 38 H (9-20) mg/dL Creatinine 1.30 H (0.66-1.25) mg/dL Total Bilirubin 1.7 H (0.2-1.3) mg/dL AST 117 H (17-59) U/L ALT 166 H (4-49) U/L TSH (0.465-4.680) mIU/L Urine Protein Trace H (Negative) 04/13/20 04/13/20 04/13/20 Range/Units 06:58 06:58 06:58 RBC 4.19 L (4.30-5.90) m/uL Hgb 12.6 L (13.0-17.5) gm/dL Plt Count 128 L (150-450) k/uL APTT 49.3 H (22.0-30.0) sec BUN (9-20) mg/dL Creatinine (0.66-1.25) mg/dL Total Bilirubin (0.2-1.3) mg/dL AST (17-59) U/L ALT (4-49) U/L TSH 16.700 H (0.465-4.680) mIU/L Urine Protein (Negative) Assessment and Plan Plan: -coronary Artery disease with three-vessel disease, possible non-ST elevation microinfarction. Patient was a valid by cardiothoracic surgery for CABG. -fall probably a syncopal episode from heart failure exacerbation. Workup of the CT head cervical spine is negative for any dislocation or fracture. -congestive heart failurechronic systolic dysfunction EF of 20-25%: Patient's symptoms and JVDs improved significantly compared to yesterday. Continue with her present dose of Lasix patient request is borderline because of which will not grafting and JAIME inhibitor at this time -elevated liver enzymes secondary to hepatic congestion, improving liver enzymes of Lasix. -Acute renal failure probably prerenal azotemia from heart failure improving with Lasix. -hypothyroidism -Hyperlipidemia
--- NOTE | 2020-04-13 13:48 | P.PN ---
Subjective Progress Note Date: 04/13/20 This is a pleasant 80-year-old gentleman with documented history of hypertension, hyperlipidemia, nondiabetic, he is a nonsmoker. He follows with Dr. Roy in the office. He underwent a recent CLAUDIA and left heart catheterization at [facility] in December of this year, the CLAUDIA did reveal severe aortic stenosis, heart catheterization revealed triple vessel coronary artery disease. The plan was for the patient to arrange to see cardiothoracic surgery within the next few months. Patient presented to the hospital on this admission following a syncopal episode 2. According to the patient, he fell to the ground on 2 separate occasions, he states that he felt very dizzy and lightheaded prior to his fall, he does feel also that he lost consciousness. He denies having any chest discomfort. His chest x-ray on presentation here showed congestive heart failure with possible right-sided pleural effusion, AP pelvis did not reveal any acute fracture. His EKG on presentation here showed a normal sinus rhythm with PACs and inferior lateral ST-T wave changes. Blood pressure 104/60 with a heart rate in the 80s to 90s, afebrile, 96% on room air. White blood cell count 5.9, hemoglobin 12.5, platelet count 123. D-dimer 0.66. Sodium 140, potassium 4.9, BUN 42, creatinine 1.5. Magnesium 2.4, AST 167, ALT 210, alk phos 136, troponin 0.35, 0.39, 0.29. BNP level 16,900. 04/13/2020 Patient seen and examined this morning, feeling better today overall. Slept well through the night last night. Blood pressure 95/60 with a heart rate in the 70s. White blood cell count 6.1, hemoglobin 12.6, platelet count 128. Sodium 143, potassium 4.4, BUN 38, creatinine 1.3. His weight is down 1 kg, we will continue current dose of IV Lasix for 24 hours. Discontinue the IV heparin. TSH 16.7 Objective - Vital Signs Vital signs: Vital Signs Temp 97.5 F L 04/13/20 11:13 Pulse 82 04/13/20 11:13 Resp 18 04/13/20 11:13 BP 96/54 04/13/20 11:13 Pulse Ox 94 L 04/13/20 11:13 Intake & Output 04/12/20 04/13/20 04/13/20 18:59 06:59 18:59 Intake Total 562.639 345.198 Output Total 750 1400 301 Balance -187.361 -1400 44.198 Weight 83.2 kg Intake: Intake, IV Titration 82.639 105.198 Amount Heparin Sod,Pork in 0.45% 82.639 105.198 NaCl 25,000 unit In 0.45 % NaCl 1 250ml.bag @ 11. 789 UNITS/KG/HR 10 mls/hr IV .Q24H [facility] Rx#: [id number] Oral 480 240 Output: Urine 750 1400 300 Stool 1 Other: Voiding Method Toilet Toilet Toilet Urinal Urinal Urinal # Voids 1 1 1 # Bowel Movements 3 - Exam PHYSICAL EXAMINATION: GENERAL: 80-year-old gentleman in no acute distress at the time of my examination HEENT: Head is atraumatic, normocephalic. Pupils equal, round. Sclera anicteric. Conjunctiva are clear. Mucous membranes of the mouth are moist. Neck is supple. There is elevated jugular venous pressure. No carotid bruit is heard. HEART EXAMINATION: Heart S1-S2 systolic ejection murmur is heard CHEST EXAMINATION: On's reveal diminished air entry to the bases bilaterally ABDOMEN: Soft, nontender. Bowel sounds are heard. No organomegaly noted. EXTREMITIES: 2+ peripheral pulses with evidence of peripheral edema and no calf tenderness noted. NEUROLOGIC patient is awake, alert and oriented 3 - Labs CBC & Chem 7: 04/13/20 06:58 04/13/20 06:58 Labs: Abnormal Lab Results - Last 24 Hours (Table) 04/12/20 04/12/20 04/13/20 Range/Units 13:00 16:29 06:58 RBC (4.30-5.90) m/uL Hgb (13.0-17.5) gm/dL Plt Count (150-450) k/uL APTT 54.1 H (22.0-30.0) sec BUN 38 H (9-20) mg/dL Creatinine 1.30 H (0.66-1.25) mg/dL Total Bilirubin 1.7 H (0.2-1.3) mg/dL AST 117 H (17-59) U/L ALT 166 H (4-49) U/L TSH (0.465-4.680) mIU/L Urine Protein Trace H (Negative) 04/13/20 04/13/20 04/13/20 Range/Units 06:58 06:58 06:58 RBC 4.19 L (4.30-5.90) m/uL Hgb 12.6 L (13.0-17.5) gm/dL Plt Count 128 L (150-450) k/uL APTT 49.3 H (22.0-30.0) sec BUN (9-20) mg/dL Creatinine (0.66-1.25) mg/dL Total Bilirubin (0.2-1.3) mg/dL AST (17-59) U/L ALT (4-49) U/L TSH 16.700 H (0.465-4.680) mIU/L Urine Protein (Negative) Assessment and Plan Plan: Assessment and plan #1 systolic congestive heart failure acute on chronic #2 syncopal episodes #3 coronary artery disease with multivessel CAD by cath performed in December #4 severe aortic stenosis #5 hypertension #6 hyperlipidemia #7 abnormal troponin, likely secondary to supply and demand mismatch Plan We will continue the patient on IV Lasix, check lytes BUN and creatinine in the morning. Discontinue IV heparin. Await input from cardiothoracic surgery for the patient's multivessel coronary artery disease and severe aortic stenosis. Echocardiogram with Doppler study revealed an ejection fraction of 20-25%, basal inferior and inferior septal mid inferior and mid inferior septal along with apical inferior and apical septal hypokinesia noted. LA is severely dilated. Severe aortic valve sclerosis with moderate aortic regurg, moderate to severe aortic stenosis, moderate to severe pulmonary hypertension, moderate pulmonary regurg. DNP note has been reviewed, I agree with a documented findings and plan of care. Patient was seen and examined.
[2020-04-13 15:01] LABS: T4, Free (Free Thyroxine) 0.7 ng/dL (0.78-2.19)
[2020-04-13 19:17] LABS: Hemoglobin A1C 6.6 % (4.0-6.0)
[2020-04-13] MEDS: FAMOTIDINE 20 MG TAB PO SCH (20:08)
[2020-04-13] MEDS: ATORVASTATIN 40 MG TAB PO SCH (20:08)
[2020-04-13] MEDS: METOPROLOL SUCCINATE (ER) 25 MG TAB.ER.24H PO SCH (20:08)
[2020-04-14] MEDS: LEVOTHYROXINE 50 MCG TAB PO SCH (05:52)
[2020-04-14 07:56] LABS: Potassium 4.2 mmol/L (3.5-5.1)
[2020-04-14] MEDS: ASPIRIN 81 MG PO SCH (08:14)
[2020-04-14] MEDS: FUROSEMIDE 10 MG/ML 4 ML VIAL IV SCH ×2 (08:14→20:34)
[2020-04-14] MEDS: SPIRONOLACTONE 25 MG TAB PO SCH (12:23)
--- NOTE | 2020-04-14 12:33 | PN ---
PROGRESS NOTE Mr. Dunbar is a 80-year-old male with history of severe triple-vessel coronary artery disease, history of aortic stenosis who presented with a fall. He has significant peripheral edema. He is feeling better overall. His breathing is better. He denies any symptoms of chest pain. He denies any dizziness or palpitation. He denies any nausea. He is sitting up in the chair. He continued to be in sinus mechanism. He continues to have significant ecchymosis on the face. He continues to be on Lasix 40 mg IV q.12 hours, Lipitor 40 mg daily, aspirin once a day, metoprolol succinate 25 mg daily. PHYSICAL EXAMINATION: Blood pressure running in the 90-110 with a heart rate in the 70s. LUNGS: With few crackles at the bases. HEART: Regular rate and rhythm, S1, S2 with systolic ejection murmur, 3/6 heard at the base. No diastolic murmur, no rub. ABDOMEN: Soft, nontender. EXTREMITIES: 2 to 3+ edema, improving with erythema improving as well. He has -1500 mL yesterday and so far -1400 today. LAB DATA: Revealed BUN and creatinine of 35 and 1.1, potassium of 4.2. His pH is 16.7. He was started on Synthroid. IMPRESSION: 1. Symptoms of congestive heart failure with known history of severe cardiomyopathy as well history of severe aortic stenosis. 2. Severe triple-vessel disease. 3. Fall with no syncope. 4. Severe pulmonary hypertension. RECOMMENDATION: Patient has been evaluated by Dr. Tavarez who has felt that the patient is very high risk for any surgical intervention. At this time, I would recommend to optimize his medical therapy and consider high risk percutaneous revascularization with TAVR. The that will be re-evaluated at a later time. In the meantime, will continue intravenous diuretic for another 24 hours. I will add spironolactone to his regimen. Will continue on the present dose of beta henna and depending on his progress, further recommendation will be made. MMODL / IJN: [id number] /
[2020-04-14] MEDS: FAMOTIDINE 20 MG TAB PO SCH (20:34)
[2020-04-14] MEDS: METOPROLOL SUCCINATE (ER) 25 MG TAB.ER.24H PO SCH (20:34)
[2020-04-14] MEDS: ATORVASTATIN 40 MG TAB PO SCH (20:34)
[2020-04-15] MEDS: LEVOTHYROXINE 50 MCG TAB PO SCH (05:46)
--- NOTE | 2020-04-15 06:14 | P.PN ---
Subjective Progress Note Date: 04/14/20 Principal diagnosis: Patient is a pleasant 80-year-old gentleman came in after a fall found to be in heart failure exacerbation. Patient had coronary artery disease and a major th ree-vessel disease patient is being evaluated by cardiac thoracic surgery patient heart failure symptoms improved patient blood pressure is borderline and low patient has EF of around 20-25% presently on Lasix liver enzymes are bit better and the serum creatinine is bit better with Lasix. TSH is elevated will obtain T4 levels, patient underwent bilateral carotid Doppler and echo a CT thorax of the part of workup for carotid artery bypass grafting carotid Doppler showed 70% stenosis on the left side. Constitutional: Denied any fatigue denied any fever. Cardio vascular: denied any chest pain, palpitations Gastrointestinal denied any nausea vomiting Pulmonary: Denied any shortness of breath cough Neurologic denied any new focal deficits 04/14/2020 Patient is seen and evaluated in follow-up today currently sitting up in the chair. Patient remains on IV Lasix and will continue at this time. Cardiology following closely recommending maximum medical management. Case management also following along with social work working on possible placement at an ECF for continued rehab. Aldactone also has been added. No reports of chest pain, shortness of breath, or palpitations. Patient is afebrile. No reports of nausea or vomiting and tolerating diet. Objective - Vital Signs Vital signs: Vital Signs Temp 97.5 F L 04/14/20 12:00 Pulse 71 04/14/20 12:00 Resp 18 04/14/20 12:00 BP 155/111 04/14/20 12:00 Pulse Ox 92 L 04/14/20 12:00 Intake & Output 04/13/20 04/14/20 04/14/20 18:59 06:59 18:59 Intake Total 825.198 480 Output Total 1126 1100 Balance -300.802 -1100 480 Weight 82.9 kg Intake: Intake, IV Titration 105.198 Amount Heparin Sod,Pork in 0.45% 105.198 NaCl 25,000 unit In 0.45 % NaCl 1 250ml.bag @ 11. 789 UNITS/KG/HR 10 mls/hr IV .Q24H YANDEL Rx#: [id number] Oral 720 480 Output: Urine 1125 1100 Stool 1 Other: Voiding Method Toilet Toilet Toilet Urinal Urinal Urinal # Voids 1 1 - Exam GENERAL: The patient is alert and oriented x3, not in any acute distress. Well developed, well nourished. HEENT: Pupils are round and equally reacting to light. EOMI. No scleral icterus. No conjunctival pallor. Normocephalic, facial bruising. No pharyngeal erythema. No thyromegaly. CARDIOVASCULAR: S1 and S2 present. No murmurs, rubs, or gallops. does have elevated JVD PULMONARY: Diminished breath sounds with some mild crackles noted. ABDOMEN: Soft, nontender, nondistended, normoactive bowel sounds. No palpable organomegaly. MUSCULOSKELETAL: No joint swelling or deformity. EXTREMITIES: No cyanosis, clubbing, or pedal edema. NEUROLOGICAL: Gross neurological examination did not reveal any focal deficits. SKIN: bruises everywhere including facial bruising - Labs CBC & Chem 7: 04/13/20 06:58 04/14/20 07:14 Labs: Abnormal Lab Results - Last 24 Hours (Table) 04/13/20 04/13/20 04/14/20 Range/Units 06:58 06:58 07:14 BUN 35 H (9-20) mg/dL Hemoglobin A1c 6.6 H (4.0-6.0) % Free T4 0.70 L (0.78-2.19) ng/dL Microbiology - Last 24 Hours (Table) 04/13/20 11:22 Nasal Screen MRSA/MSSA - Preliminary Nasal Swab Assessment and Plan Assessment: -coronary Artery disease with three-vessel disease, possible non-ST elevation myocardial infarction. Patient was evaluated by cardiothoracic surgery for CABG although not a surgical candidate at this time. Will continue with maximum medical management. -fall probably a syncopal episode from heart failure exacerbation. Workup of the CT head cervical spine is negative for any dislocation or fracture. -congestive heart failure chronic systolic dysfunction EF of 20-25%: Patient's symptoms and JVDs improved. Patient will remain on IV Lasix 40 mg twice daily -elevated liver enzymes secondary to hepatic congestion, improving liver enzymes of Lasix. -Acute renal failure probably prerenal azotemia from heart failure improving, current creatinine 1.15 -hypothyroidism -Hyperlipidemia Plan: Continue with IV Lasix at this time for an additional 24 hours. Case management and social work following for possible placement in ECF. PT/OT to evaluate. Further recommendations to follow.
[2020-04-15 08:37] LABS: Calcium 8.7 mg/dL (8.4-10.2); Potassium 4.4 mmol/L (3.5-5.1)
[2020-04-15] MEDS: ASPIRIN 81 MG PO SCH (08:43)
[2020-04-15] MEDS: FUROSEMIDE 10 MG/ML 4 ML VIAL IV SCH ×2 (08:43→20:16)
[2020-04-15] MEDS: SPIRONOLACTONE 25 MG TAB PO SCH (08:43)
[2020-04-15] MEDS: ARTIFICIAL TEARS-HYPROMELLOSE DROPS 15 ML BTL BOTH EYES PRN ×2 (08:58→20:18)
--- NOTE | 2020-04-15 10:47 | P.PN ---
Subjective Progress Note Date: 04/15/20 Principal diagnosis: Triple-vessel coronary artery disease, non-STEMI this admission, acute on chronic systolic heart failure, severe aortic stenosis, mild MR with mild MAC, mild TR, moderate to severe pulmonary hypertension, moderate pulmonary regurgitation, acute kidney injury, syncopal episode 2, elevated transaminases. Previous medical history of hypertension, hyperlipidemia, hypothyroid, and family history of heart disease and kidney disease. The patient was examined and this morning, laying in bed in no acute distress. Denies pain, shortness of breath. No new concerns. Objective - Vital Signs Vital signs: Vital Signs Temp 97.7 F 04/15/20 08:00 Pulse 74 04/15/20 08:00 Resp 20 04/15/20 08:00 BP 98/59 04/15/20 08:00 Pulse Ox 98 04/15/20 08:00 Intake & Output 04/14/20 04/15/20 04/15/20 18:59 06:59 18:59 Intake Total 960 Output Total 200 1075 Balance 760 -1075 Weight 76.9 kg Intake: Oral 960 Output: Urine 200 1075 Other: Voiding Method Toilet Toilet Toilet Urinal Urinal Urinal # Voids 1 # Bowel Movements 0 - Constitutional General appearance: Present: cooperative, no acute distress - Respiratory Details: Lungs sounds diminished bilaterally. Respirations even, nonlabored. Currently on room air with oxygen saturation 98%. Able to achieve 1000 mL on his incentive spirometry - Cardiovascular Details: S1, S2 present, systolic murmur present. Regular rate and rhythm, sinus rhythm on telemetry with heart rate in the low 90s. Palpable peripheral pulses bilaterally. Bilateral lower extremity 2-3+ edema present. - Gastrointestinal Gastrointestinal Comment(s): Abdomen soft, nontender, nondistended. Active bowel sounds present 4 quadrants. Tolerating diet. - Genitourinary Genitourinary Comment(s): Continues to void - Integumentary Integumentary Comment(s): Skin warm and dry. Ecchymosis present over majority of his face. Bilateral lo wer extremities with multiple areas of excoriation - Neurologic Neurologic: Present: CNII-XII intact - Musculoskeletal Musculoskeletal: Present: generalized weakness, strength equal bilaterally - Psychiatric Psychiatric Comment(s): oriented to time, oriented to person, oriented to place, speech is normal, memory intact - Allied health notes Allied health notes reviewed: nursing - Labs CBC & Chem 7: 04/13/20 06:58 04/15/20 07:24 Labs: Abnormal Lab Results - Last 24 Hours (Table) 04/15/20 Range/Units 07:24 BUN 34 H (9-20) mg/dL Microbiology - Last 24 Hours (Table) 04/13/20 11:22 Nasal Screen MRSA/MSSA - Final Nasal Swab Methicillin resist S. aureus Assessment and Plan Assessment: 1. Triple-vessel coronary artery disease, non-STEMI this admission 2. Acute on chronic systolic heart failure 3. Severe aortic stenosis, mild MR with mild MAC, mild TR, moderate to severe pulmonary hypertension, moderate pulmonary regurgitation 4. Acute kidney injury 5. Syncopal episode 2 6. Elevated transaminases 7. History of hypertension 8. History of hyperlipidemia 9. Hypothyroid 10. Family history of heart disease and kidney disease Plan: The patient was seen and examined with Dr. Tavarez. His heart catheterization and echocardiogram films were reviewed with Dr. Tavarez. As stated on our consultation the patient is too high risk for conventional CABG/AVR surgery. We would recommend medical optimization at this point. Possible PCI/arthrectomy followed by TAVR May be explored as a potential option in the future. Management of other comorbidities per primary care and cardiology. Will see again on an as-needed basis. Please contact us with any further questions. Time with Patient: Greater than 30
--- NOTE | 2020-04-15 10:54 | PN ---
PROGRESS NOTE Mr. Dunbar is a 80-year-old male with a known history of severe aortic stenosis, severe triple-vessel coronary artery disease who presented after a fall. He is feeling better today. His breathing is better. His energy is better. He denies any dizziness. He denies any palpitation. He denies any nausea. He is ambulating and feeling better overall. He continues to be on aspirin once a day, Lipitor 40 mg daily, Lasix 40 mg IV q.12 hours, metoprolol succinate 25 mg daily, spironolactone 25 mg daily. PHYSICAL EXAMINATION: Blood pressure running in the 90s to 100 with a heart rate in the 70s. LUNGS: No wheezes. HEART: Regular rate and rhythm, S1, S2. No S3 with systolic murmur, late peaking. No diastolic murmur, no rub. ABDOMEN: Soft, nontender. EXTREMITIES +1 to 2 edema bilaterally with skin changes, improved compared with yesterday. His is -1400 mL yesterday. IMPRESSION: 1. Severe aortic stenosis and severe triple-vessel coronary artery disease. 2. Severe cardiomyopathy. 3. Renal failure, improving. 4. Fall with no syncope. 5. Peripheral edema, improving. 6. Pulmonary hypertension related to his valvular disease and cardiomyopathy. RECOMMENDATION: Will continue on the IV diuretic for another 24 hours. Will follow his renal function. If stable, then he can be switched to oral and probably discharged home in few days and follow up with Dr. Chappell to proceed with further evaluation regarding revascularization and aortic valve replacement. MMODL / IJN: [id number] /
--- NOTE | 2020-04-15 14:09 | P.PN ---
Subjective Progress Note Date: 04/15/20 Principal diagnosis: Patient is a pleasant 80-year-old gentleman came in after a fall found to be in heart failure exacerbation. Patient had coronary artery disease and a major th ree-vessel disease patient is being evaluated by cardiac thoracic surgery patient heart failure symptoms improved patient blood pressure is borderline and low patient has EF of around 20-25% presently on Lasix liver enzymes are bit better and the serum creatinine is bit better with Lasix. TSH is elevated will obtain T4 levels, patient underwent bilateral carotid Doppler and echo a CT thorax of the part of workup for carotid artery bypass grafting carotid Doppler showed 70% stenosis on the left side. Constitutional: Denied any fatigue denied any fever. Cardio vascular: denied any chest pain, palpitations Gastrointestinal denied any nausea vomiting Pulmonary: Denied any shortness of breath cough Neurologic denied any new focal deficits 04/14/2020 Patient is seen and evaluated in follow-up today currently sitting up in the chair. Patient remains on IV Lasix and will continue at this time. Cardiology following closely recommending maximum medical management. Case management also following along with social work working on possible placement at an [facility] for continued rehab. Aldactone also has been added. No reports of chest pain, shortness of breath, or palpitations. Patient is afebrile. No reports of nausea or vomiting and tolerating diet. 04/15/2020 Patient is seen and evaluated in follow-up today and currently remains on IV Lasix twice daily and will continue for an additional 24 hours. Cardiology following. Case management also following as patient has only Medicare part B with no hospitalization coverage and was not approved for Medicaid due to his assets. Patient to discuss with case management about private pay options for Homecare or extended care facilities. Patient does have a sister that will come stay with him once stabilized and discharged. Patient continues to be quite weak and has been falling more often lately at home and would benefit from rehab for continued PT/OT therapy. A prescription was provided for a walker is patient's gait continues to be requiring assistance and unsteady at this time. Currently no reports of chest pain, shortness of breath, or palpitations. Patient is afebrile. No reports of nausea or vomiting and patient is tolerating diet. Patient is currently on room air and not requiring oxygen at this time. Objective - Vital Signs Vital signs: Vital Signs Temp 97.7 F 04/15/20 08:00 Pulse 74 04/15/20 08:00 Resp 20 04/15/20 08:00 BP 98/59 04/15/20 08:00 Pulse Ox 98 04/15/20 08:00 Intake & Output 04/14/20 04/15/20 04/15/20 18:59 06:59 18:59 Intake Total 960 236 Output Total 200 1075 1 Balance 760 -1075 235 Weight 76.9 kg Intake: Oral 960 236 Output: Urine 200 1075 Stool 1 Other: Voiding Method Toilet Toilet Toilet Urinal Urinal Urinal # Voids 1 1 # Bowel Movements 0 - Exam GENERAL: The patient is alert and oriented x3, not in any acute distress. Well developed, well nourished. HEENT: Pupils are round and equally reacting to light. EOMI. No scleral icterus. No conjunctival pallor. Normocephalic, facial bruising noted from previous fall. No pharyngeal erythema. No thyromegaly. CARDIOVASCULAR: S1 and S2 present. No murmurs, rubs, or gallops. does have elevated JVD PULMONARY: Diminished breath sounds with some mild rhonchi noted. ABDOMEN: Soft, nontender, nondistended, normoactive bowel sounds. No palpable o rganomegaly. MUSCULOSKELETAL: No joint swelling or deformity. EXTREMITIES: No cyanosis, clubbing, or pedal edema. NEUROLOGICAL: Gross neurological examination did not reveal any focal deficits. SKIN: bruises everywhere including facial bruising and left lower extremity bruising which appears to be improving status post frequent falls - Labs CBC & Chem 7: 04/13/20 06:58 04/15/20 07:24 Labs: Abnormal Lab Results - Last 24 Hours (Table) 04/15/20 Range/Units 07:24 BUN 34 H (9-20) mg/dL Microbiology - Last 24 Hours (Table) 04/13/20 11:22 Nasal Screen MRSA/MSSA - Final Nasal Swab Methicillin resist S. aureus Assessment and Plan Assessment: -coronary Artery disease with three-vessel disease, possible non-ST elevation myocardial infarction. Patient was evaluated by cardiothoracic surgery for CABG although not a surgical candidate at this time. Will continue with maximum medical management. Patient will follow-up with cardiology outpatient for further evaluation regarding revascularization and aortic valve replacement -fall probably a syncopal episode from heart failure exacerbation. Workup of the CT head cervical spine is negative for any dislocation or fracture. -congestive heart failure chronic systolic dysfunction EF of 20-25%: Patient's symptoms and JVDs improved. Patient will remain on IV Lasix 40 mg twice daily -elevated liver enzymes secondary to hepatic congestion, improving -Acute renal failure probably prerenal azotemia from heart failure improving, current creatinine 1.15, will monitor labs closely -hypothyroidism -Hyperlipidemia Plan: Continue with IV Lasix at this time for an additional 24 hours. Cardiology following. Case management and social work following for discharge planning needs as patient would benefit from ECF but has no coverage for this and Medicaid was not approved due to his assets. Per case management, patient has a sister that will come and stay with him for a few days once stabilized and discharged. A prescription for a walker was provided as patient continues to have gait dysfunction and history of more frequent falls recently PT/OT following. Further recommendations to follow.
[2020-04-15] MEDS: ATORVASTATIN 40 MG TAB PO SCH (20:16)
[2020-04-15] MEDS: FAMOTIDINE 20 MG TAB PO SCH (20:16)
[2020-04-15] MEDS: METOPROLOL SUCCINATE (ER) 25 MG TAB.ER.24H PO SCH (20:17)
[2020-04-16] MEDS: LEVOTHYROXINE 50 MCG TAB PO SCH (06:18)
[2020-04-16 07:15] LABS: Potassium 4.4 mmol/L (3.5-5.1)
[2020-04-16] MEDS: ASPIRIN 81 MG PO SCH (09:38)
[2020-04-16] MEDS: FUROSEMIDE 10 MG/ML 4 ML VIAL IV SCH (09:38)
[2020-04-16] MEDS: SPIRONOLACTONE 25 MG TAB PO SCH (09:38)
[2020-04-16] MEDS: ARTIFICIAL TEARS-HYPROMELLOSE DROPS 15 ML BTL BOTH EYES PRN (09:42)
--- NOTE | 2020-04-16 14:22 | P.PN ---
Subjective Progress Note Date: 04/16/20 This is a pleasant 80-year-old gentleman with documented history of hypertension, hyperlipidemia, nondiabetic, he is a nonsmoker. He follows with Dr. Chappell in the office. He underwent a recent CLAUDIA and left heart catheterization at [facility] in December of this year, the CLAUDIA did reveal severe aortic stenosis, heart catheterization revealed triple vessel coronary artery disease. The plan was for the patient to arrange to see cardiothoracic surgery within the next few months. Patient presented to the hospital on this admission following a syncopal episode 2. According to the patient, he fell to the ground on 2 separate occasions, he states that he felt very dizzy and lightheaded prior to his fall, he does feel also that he lost consciousness. He denies having any chest discomfort. His chest x-ray on presentation here showed congestive heart failure with possible right-sided pleural effusion, AP pelvis did not reveal any acute fracture. His EKG on presentation here showed a normal sinus rhythm with PACs and inferior lateral ST-T wave changes. Blood pressure 104/60 with a heart rate in the 80s to 90s, afebrile, 96% on room air. White blood cell count 5.9, hemoglobin 12.5, platelet count 123. D-dimer 0.66. Sodium 140, potassium 4.9, BUN 42, creatinine 1.5. Magnesium 2.4, AST 167, ALT 210, alk phos 136, troponin 0.35, 0.39, 0.29. BNP level 16,900. 04/13/2020 Patient seen and examined this morning, feeling better today overall. Slept well through the night last night. Blood pressure 95/60 with a heart rate in the 70s. White blood cell count 6.1, hemoglobin 12.6, platelet count 128. Sodium 143, potassium 4.4, BUN 38, creatinine 1.3. His weight is down 1 kg, we will continue current dose of IV Lasix for 24 hours. Discontinue the IV heparin. TSH 16.7 04/16: Patient denies having any chest pain. He states he is quite comfortable. He states his breathing is back to normal. The patient did have a run of 7 beats of V. tach. Magnesium level will be ordered. Potassium is 4.4, BUN 34 and creatinine 1.09. CO2 32. Patient is currently on Lasix at 40 mg IV every 12 hours and will transition to oral. Plan to monitor overnight and discharged home tomorrow. Patient has been evaluated by cardiothoracic surgery and at this time is too high risk for aortic valve replacement and CABG. Patient may benefit from TAVR. Physical examination: Gen: This is a 80-year-old male. He is resting in bed appears to be comfortable. HEENT: Head is atraumatic, normocephalic. Pupils equal, round. Sclerae is anicte jong. NECK: Supple. No JVD. No lymphadenopathy. No thyromegaly. LUNGS: Clear to auscultation. No wheezes or rhonchi. No intercostal retractions. HEART: Regular rate and rhythm. Systolic ejection murmur. ABDOMEN: Soft. Bowel sounds are present. No masses. No tenderness. EXTREMITIES: No pedal edema. No calf tenderness. NEUROLOGICAL: Patient is awake, alert and oriented x3. Cranial nerves 2 through 12 are grossly intact. Assessment: Severe aortic stenosis and severe triple-vessel coronary artery disease Acute on chronic systolic heart failure Severe ischemic cardiomyopathy No acute coronary syndrome Acute kidney injury with chronic kidney disease stage III Pulmonary hypertension Episode of ventricular tachycardia Plan: Transition IV Lasix to oral 80 mg twice daily Monitor over the next 24 hours Continue Aldactone 25 mg daily, Toprol-XL 25 mg at bedtime, aspirin and Lipitor Further recommendations to follow based upon clinical course Nurse practitioner note has been reviewed, I agree with documented findings and plan of care. Patient was seen and examined. Objective - Vital Signs Vital signs: Vital Signs Temp 97.8 F 04/16/20 04:00 Pulse 73 04/16/20 08:00 Resp 20 04/16/20 08:00 BP 93/54 04/16/20 08:00 Pulse Ox 94 L 04/16/20 08:00 Intake & Output 04/15/20 04/16/20 04/16/20 18:59 06:59 18:59 Intake Total 592 540 240 Output Total 1051 875 401 Balance -459 -335 -161 Weight 77 kg Intake: Oral 592 540 240 Output: Urine 1050 875 400 Stool 1 1 Other: Voiding Method Toilet Toilet Toilet Urinal Urinal Urinal # Voids 1 3 # Bowel Movements 1 0 - Labs CBC & Chem 7: 04/13/20 06:58 04/16/20 06:40 Labs: Abnormal Lab Results - Last 24 Hours (Table) 04/16/20 Range/Units 06:40 Carbon Dioxide 32 H (22-30) mmol/L BUN 34 H (9-20) mg/dL
[2020-04-16] MEDS: FUROSEMIDE 80 MG TAB PO SCH (17:35)
--- NOTE | 2020-04-16 18:03 | P.PN ---
Subjective Progress Note Date: 04/16/20 Principal diagnosis: severe aortic stenosis and triple-vessel coronary artery disease Mr. Dunbar is a pleasant 80-year-old gentleman with history of hypertension, hyperlipidemiacoming into the hospital after having a fall over his face because of her syncopal episode. He was also having difficulty in breathing and orthopnea. Patient had a chest x-ray done in the ED showing pulmonary edema. Eventually patient had an echocardiogram showing ejection fraction of 20-25% with basal inferior LV motion hypokinesis. as a workup for syncope patient also had bilateral carotid Doppler, and CT chest which was positive for carotid artery 70% stenosis on the left side. Eventually CT surgery has been consulted and he deemed him a poor surgical candidate and suggested medical management. On 04/16/2020 - patient is sitting up in a chair by the bedside and having his dinner. Patient denies having any chest pain or difficulty in breathing. Denies having any palpitations. No abdominal pain nausea vomiting or diarrhea.no acute issues reported by nursing staff overnight. Patient's vitals have been stable and he is saturating and 92% on 2 L of nasal cannula.labs from this morning showing creatinine of 1.09. Active Medications Artificial Tears (Artificial Tear Drops) 1 drops BOTH EYES QID PRN PRN Reason: Dry Eye(s) Last Admin: 04/16/20 09:42 Dose: 1 drops Documented by: Aspirin (Aspirin) 81 mg PO DAILY [facility] Last Admin: 04/16/20 09:38 Dose: 81 mg Documented by: Atorvastatin Calcium (Lipitor) 40 mg PO [facility] Last Admin: 04/15/20 20:16 Dose: 40 mg Documented by: Famotidine (Pepcid) 20 mg PO [facility] Last Admin: 04/15/20 20:16 Dose: 20 mg Documented by: Furosemide (Lasix) 80 mg PO BID@0900,1600 [facility] Last Admin: 04/16/20 17:35 Dose: 80 mg Documented by: Levothyroxine Sodium (Synthroid) 50 mcg PO 0630 [facility] Last Admin: 04/16/20 06:18 Dose: 50 mcg Documented by: Metoprolol Succinate (Toprol Xl) 25 mg PO [facility] Last Admin: 04/15/20 20:17 Dose: 25 mg Documented by: Nitroglycerin (Nitrostat) 0.4 mg SUBLINGUAL Q5M PRN PRN Reason: Chest Pain Spironolactone (Aldactone) 25 mg PO DAILY [facility] Last Admin: 04/16/20 09:38 Dose: 25 mg Documented by: Objective - Vital Signs Vital signs: Vital Signs Temp 97.8 F 04/16/20 04:00 Pulse 86 04/16/20 12:00 Resp 22 04/16/20 12:00 BP 123/58 04/16/20 12:00 Pulse Ox 92 L 04/16/20 12:00 Intake & Output 04/15/20 04/16/20 04/16/20 18:59 06:59 18:59 Intake Total 592 540 480 Output Total 1051 875 402 Balance -459 -335 78 Weight 77 kg Intake: Oral 592 540 480 Output: Urine 1050 875 400 Stool 1 2 Other: Voiding Method Toilet Toilet Toilet Urinal Urinal Urinal # Voids 1 3 1 # Bowel Movements 1 0 - Exam PHYSICAL EXAM GENERAL: The patient is alert and oriented x3, not in any acute distress. Well developed, well nourished. HEENT: Pupils are round and equally reacting to light. EOMI. No scleral icterus. No conjunctival pallor. Normocephalic, facial bruising noted from fall. No pharyngeal erythema. No thyromegaly. CARDIOVASCULAR: S1 and S2 present. No murmurs, rubs, or gallops. does have elevated JVD PULMONARY: Diminished breath sounds with some mild rhonchi noted. ABDOMEN: Soft, nontender, nondistended, normoactive bowel sounds. No palpable organomegaly. MUSCULOSKELETAL: No joint swelling or deformity. EXTREMITIES: No cyanosis, clubbing, or pedal edema. NEUROLOGICAL: No focal deficits on gross exam SKIN: bruises everywhere including facial bruising and left lower extremity bruising could be due to recurrent falls - Labs CBC & Chem 7: 04/13/20 06:58 04/16/20 06:40 Labs: Abnormal Lab Results - Last 24 Hours (Table) 04/16/20 Range/Units 06:40 Carbon Dioxide 32 H (22-30) mmol/L BUN 34 H (9-20) mg/dL Assessment and Plan Assessment: ASSESSMENT Severe aortic stenosis Triple-vessel coronary artery disease Syncopal episode Acute congestive systolic heart failure exacerbation Transaminitis Acute kidney injury-probably cardiorenal syndrome Hypothyroidism Hypertension Hyperlipidemia PLAN: patient has been transitioned to IV Lasix oral 80 mg twice daily by cardiology to which he seems to be responding well. Continue with aspirin, stat in, beta henna. As per cardiology and CT surgery , he is a poor surgical candidate and so to continue with medical management for his severe aortic stenosis and triple-vessel coronary artery disease. Continue with the rest of his current medication regimen overall prognosis is poor. Further admonitions to follow depending on the progress of the patient.
[2020-04-16] MEDS: FAMOTIDINE 20 MG TAB PO SCH (20:23)
[2020-04-16] MEDS: ATORVASTATIN 40 MG TAB PO SCH (20:23)
[2020-04-16] MEDS: METOPROLOL SUCCINATE (ER) 25 MG TAB.ER.24H PO SCH (20:23)
[2020-04-17 07:03] LABS: Basophils # (A) 0.1 k/uL (0-0.2); Basophils % (A) 1 %; Eosinophils # (A) 0.2 k/uL (0-0.7); Eosinophils % (A) 2 %; HCT 41.9 % (39.0-53.0); HGB 13.5 gm/dL (13.0-17.5); Hypochromasia Slight; Lymphocytes % (A) 14 %; MCH 29.6 pg (25.0-35.0); MCHC 32.2 g/dL (31.0-37.0); MCV 91.9 fL (80.0-100.0); Mean Platelet Volume 9.9; Monocytes # (A) 0.8 k/uL (0-1.0); Monocytes % (A) 11 %; Neutrophils % (A) 69 %; Platelet Count 145 k/uL (150-450); RBC 4.56 m/uL (4.30-5.90); RDW 15.4 % (11.5-15.5); WBC 7.2 k/uL (3.8-10.6)
[2020-04-17 07:16] LABS: Calcium 9.1 mg/dL (8.4-10.2); Potassium 4.6 mmol/L (3.5-5.1)
[2020-04-17] MEDS: LEVOTHYROXINE 50 MCG TAB PO SCH (07:45)
[2020-04-17 08:56] VITALS: BP 96/53; PULSE 76; RESP 17; TEMP 97.6
[2020-04-17] MEDS: SPIRONOLACTONE 25 MG TAB PO SCH (08:58)
[2020-04-17] MEDS: FUROSEMIDE 80 MG TAB PO SCH (08:58)
[2020-04-17] MEDS: ASPIRIN 81 MG PO SCH (08:58)
[2020-04-17] MEDS: ARTIFICIAL TEARS-HYPROMELLOSE DROPS 15 ML BTL BOTH EYES PRN (08:59)
--- NOTE | 2020-04-17 12:48 | P.PN ---
Subjective Progress Note Date: 04/17/20 This is a pleasant 80-year-old gentleman with documented history of hypertension, hyperlipidemia, nondiabetic, he is a nonsmoker. He follows with Dr. Chappell in the office. He underwent a recent CLAUDIA and left heart catheterization at [facility] in December of this year, the CLAUDIA did reveal severe aortic stenosis, heart catheterization revealed triple vessel coronary artery disease. The plan was for the patient to arrange to see cardiothoracic surgery within the next few months. Patient presented to the hospital on this admission following a syncopal episode 2. According to the patient, he fell to the ground on 2 separate occasions, he states that he felt very dizzy and lightheaded prior to his fall, he does feel also that he lost consciousness. He denies having any chest discomfort. His chest x-ray on presentation here showed congestive heart failure with possible right-sided pleural effusion, AP pelvis did not reveal any acute fracture. His EKG on presentation here showed a normal sinus rhythm with PACs and inferior lateral ST-T wave changes. Blood pressure 104/60 with a heart rate in the 80s to 90s, afebrile, 96% on room air. White blood cell count 5.9, hemoglobin 12.5, platelet count 123. D-dimer 0.66. Sodium 140, potassium 4.9, BUN 42, creatinine 1.5. Magnesium 2.4, AST 167, ALT 210, alk phos 136, troponin 0.35, 0.39, 0.29. BNP level 16,900. 04/13/2020 Patient seen and examined this morning, feeling better today overall. Slept well through the night last night. Blood pressure 95/60 with a heart rate in the 70s. White blood cell count 6.1, hemoglobin 12.6, platelet count 128. Sodium 143, potassium 4.4, BUN 38, creatinine 1.3. His weight is down 1 kg, we will continue current dose of IV Lasix for 24 hours. Discontinue the IV heparin. TSH 16.7 04/16: Patient denies having any chest pain. He states he is quite comfortable. He states his breathing is back to normal. The patient did have a run of 7 beats of V. tach. Magnesium level will be ordered. Potassium is 4.4, BUN 34 and creatinine 1.09. CO2 32. Patient is currently on Lasix at 40 mg IV every 12 hours and will transition to oral. Plan to monitor overnight and discharged home tomorrow. Patient has been evaluated by cardiothoracic surgery and at this time is too high risk for aortic valve replacement and CABG. Patient may benefit from TAVR. 04/17; patient denies having any chest pain, difficulty breathing. He denies any dizziness or lightheadedness. Yesterday, IV Lasix was transitioned to oral. Repeat blood work reveals BUN 41, creatinine 1.19, potassium 4.6, chloride 97, CO2 33. He has been afebrile, heart rate 76, blood pressure 96/53, pulse ox 99% on room air. Physical examination: Gen: This is a 80-year-old male. He is resting in bed appears to be comfortable. HEENT: Head is atraumatic, normocephalic. Pupils equal, round. Sclerae is anicteric. Heart of hearing. NECK: Supple. No JVD. No lymphadenopathy. No thyromegaly. LUNGS: Clear to auscultation. No wheezes or rhonchi. No intercostal retractions. HEART: Regular rate and rhythm. Systolic ejection murmur. ABDOMEN: Soft. Bowel sounds are present. No masses. No tenderness. EXTREMITIES: No pedal edema. No calf tenderness. NEUROLOGICAL: Patient is awake, alert and oriented x3. Cranial nerves 2 through 12 are grossly intact. Assessment: Severe aortic stenosis and severe triple-vessel coronary artery disease Acute on chronic systolic heart failure Severe ischemic cardiomyopathy No acute coronary syndrome Acute kidney injury with chronic kidney disease stage III Pulmonary hypertension Episode of ventricular tachycardia Plan: Continue Lasix oral 80 mg twice daily Continue Aldactone 25 mg daily, Toprol-XL 25 mg at bedtime, aspirin and Lipitor Patient is cleared for discharge from cardiology and follow-up with Dr. Chappell as an outpatient Nurse practitioner note has been reviewed, I agree with documented findings and plan of care. Patient was seen and examined. Objective - Vital Signs Vital signs: Vital Signs Temp 97.6 F 04/17/20 08:00 Pulse 76 04/17/20 08:00 Resp 17 04/17/20 08:00 BP 96/53 04/17/20 08:00 Pulse Ox 99 04/17/20 08:00 Intake & Output 04/16/20 04/17/20 04/17/20 18:59 06:59 18:59 Intake Total 600 200 Output Total 402 1950 Balance 198 -1950 200 Weight 74.2 kg Intake: Oral 600 200 Output: Urine 400 1950 Stool 2 Other: Voiding Method Toilet Toilet Toilet Urinal Urinal Urinal # Voids 1 2 # Bowel Movements 0 - Labs CBC & Chem 7: 04/17/20 06:19 04/17/20 06:19 Labs: Abnormal Lab Results - Last 24 Hours (Table) 04/17/20 04/17/20 Range/Units 06:19 06:19 Plt Count 145 L (150-450) k/uL Chloride 97 L (98-107) mmol/L Carbon Dioxide 33 H (22-30) mmol/L BUN 41 H (9-20) mg/dL
--- NOTE | 2020-04-18 00:50 | P.DS ---
Providers Date of admission: 04/12/20 00:27 Expected date of discharge: 04/17/20 Attending physician: Gustavo Castro MD Consults: 04/12/20 00:27 Consult Physician Urgent Consulting Provider: Jack Cerda Consult Reason/Comments: nstemi Do you want consulting provider notified?: Yes 04/12/20 12:07 Consult Physician Routine Consulting Provider: Josemanuel Desai Consult Reason/Comments: severe and triple vessel CAD Do you want consulting provider notified?: Already Contacted Primary care physician: [facility] Course: Mr. Dunbar is a pleasant 80-year-old gentleman with history of hypertension, hyperlipidemia, nondiabetic, he is a nonsmoker. He follows with Dr. Chappell in the office. He underwent a recent CLAUDIA and left heart catheterization at [facility] in December of this year, the CLAUDIA did reveal severe aortic stenosis, heart catheterization revealed triple vessel coronary artery disease. The plan was for the patient to arrange to see cardiothoracic surgery within the next few months. Patient presented to the hospital on this admission following a syncopal episode 2. According to the patient, he fell to the ground on 2 separate occasions, he states that he felt very dizzy and lightheaded prior to his fall, he does feel also that he lost consciousness. He denies having any chest discomfort. His chest x-ray on presentation here showed congestive heart failure with possible right-sided pleural effusion, AP pelvis did not reveal any acute fracture. His EKG on presentation here showed a normal sinus rhythm with PACs and inferior lateral ST-T wave changes. Blood pressure 104/60 with a heart rate in the 80s to 90s, afebrile, 96% on room air. White blood cell count 5.9, hemoglobin 12.5, platelet count 123. D-dimer 0.66. Sodium 140, potassium 4.9, BUN 42, creatinine 1.5. Magnesium 2.4, AST 167, ALT 210, alk phos 136, troponin 0.35, 0.39, 0.29. BNP level 16,900. He was also having difficulty in breathing and orthopnea. Patient had a chest x-ray done in the ED showing pulmonary edema. Eventually patient had an echocardiogram showing ejection fraction of 20-25% with basal inferior LV motion hypokinesis. as a workup for syncope patient also had bilateral carotid Doppler, and CT chest which was positive for carotid artery 70% stenosis on the left side. Eventually CT surgery has been consulted and he deemed him a poor surgical candidate and suggested medical management. Patient was medically managed with IV Lasix and eventually changed to p.o. 80 mg twice daily. He was cleared by cardiology to be discharged home. Patient lives with his sister and she was okay with having him back. Vital Signs Temp 97.6 F 04/17/20 08:00 Pulse 76 04/17/20 08:00 Resp 17 04/17/20 08:00 BP 96/53 04/17/20 08:00 Pulse Ox 99 04/17/20 08:00 Intake & Output 04/16/20 04/17/20 04/17/20 18:59 06:59 18:59 Intake Total 600 200 Output Total 402 1950 Balance 198 -1950 200 Weight 74.2 kg Intake: Oral 600 200 Output: Urine 400 1950 Stool 2 Other: Voiding Method Toilet Toilet Toilet Urinal Urinal Urinal # Voids 1 2 # Bowel Movements 0 - PHYSICAL EXAM GENERAL: The patient is alert and oriented x3, not in any acute distress. Well developed, well nourished. HEENT: Pupils are round and equally reacting to light. EOMI. No scleral icterus. No conjunctival pallor. Normocephalic, facial bruising noted from fall. No pharyngeal erythema. No thyromegaly. CARDIOVASCULAR: S1 and S2 present. No murmurs, rubs, or gallops. does have elevated JVD PULMONARY: Diminished breath sounds with some mild rhonchi noted. ABDOMEN: Soft, nontender, nondistended, normoactive bowel sounds. No palpable organomegaly. MUSCULOSKELETAL: No joint swelling or deformity. EXTREMITIES: No cyanosis, clubbing, or pedal edema. NEUROLOGICAL: No focal deficits on gross exam SKIN: bruises everywhere including facial bruising and left lower extremity bruising could be due to recurrent falls DISCHARGE DIAGNOSIS: Severe aortic stenosis Triple-vessel coronary artery disease Syncopal episode Acute congestive systolic heart failure exacerbation Transaminitis Acute kidney injury-probably cardiorenal syndrome Hypothyroidism Hypertension Hyperlipidemia PLAN: Discharge home with Cardiology follow up - Dr Chappell. Follow up with PCP in 2-3 days. More than 30 mins spent coordinating the discharge of the patient. Patient Condition at Discharge: Fair Plan - Discharge Summary Discharge Rx Participant: Yes New Discharge Prescriptions: New Spironolactone [Aldactone] 25 mg PO DAILY #30 tab Furosemide [Lasix] 80 mg PO BID@0900,1600 #30 tab Nitroglycerin Sl Tabs [Nitrostat] 0.4 mg SUBLINGUAL Q5M PRN #20 tab PRN Reason: Chest Pain Continue Aspirin EC [Ecotrin Low Dose] 81 mg PO HS [place]-3 Fatty Acids/Fish Oil [Fish Oil 1,000 mg Softgel] 1 cap PO HS Metoprolol Succinate [Toprol XL] 25 mg PO HS Lisinopril [Prinivil] 5 mg PO HS Levothyroxine Sodium [Synthroid] 50 mcg PO DAILY Famotidine [Pepcid] 20 mg PO HS Atorvastatin [Lipitor] 40 mg PO HS Multivitamin/Iron/Folic Acid [Centrum Adults Tablet] 1 tab PO HS Discontinued Furosemide [Lasix] 20 mg PO DAILY Discharge Medication List Aspirin EC [Ecotrin Low Dose] 81 mg PO HS 04/11/20 [History] Atorvastatin [Lipitor] 40 mg PO HS 04/12/20 [History] Famotidine [Pepcid] 20 mg PO HS 04/12/20 [History] Levothyroxine Sodium [Synthroid] 50 mcg PO DAILY 04/12/20 [History] Lisinopril [Prinivil] 5 mg PO HS 04/12/20 [History] Metoprolol Succinate [Toprol XL] 25 mg PO HS 04/12/20 [History] Multivitamin/Iron/Folic Acid [Centrum Adults Tablet] 1 tab PO HS 04/12/20 [History] [place]-3 Fatty Acids/Fish Oil [Fish Oil 1,000 mg Softgel] 1 cap PO HS 04/12/20 [History] Furosemide [Lasix] 80 mg PO BID@0900,1600 #30 tab 04/17/20 [Rx] Nitroglycerin Sl Tabs [Nitrostat] 0.4 mg SUBLINGUAL Q5M PRN #20 tab 04/17/20 [Rx] Spironolactone [Aldactone] 25 mg PO DAILY #30 tab 04/17/20 [Rx] Follow up Appointment(s)/Referral(s): Josemanuel Xiong MD [Primary Care Provider] - 1-2 days (Please call office for follow up appoinment ) [facility], [NON-STAFF] - (Homecare will call you to set up appointment ) Pankaj Chappell MD [STAFF PHYSICIAN] - 1 Week (Please call office for follow up appointment) Patient Instructions/Handouts: Syncope (DC) Discharge Disposition: HOME SELF-CARE
== END 2020-04-17 16:29 | disposition home or self-care (01) | DRG 280 ==
LOC: EC 20:12 → 3SCARD 04-12 00:27
PROVIDERS: ADMIT Internal Medicine; ATTEND Internal Medicine
DX: I13.0 Hypertensive heart and chronic kidney disease with heart failure and stage 1 through stage 4 chronic kidney disease, or unspecified chronic kidney disease (principal); I21.4 Non-ST elevation (NSTEMI) myocardial infarction; I50.23 Acute on chronic systolic (congestive) heart failure; I47.2 Ventricular tachycardia; N17.9 Acute kidney failure, unspecified; E03.9 Hypothyroidism, unspecified; E78.5 Hyperlipidemia, unspecified; H91.90 Unspecified hearing loss, unspecified ear; I25.10 Atherosclerotic heart disease of native coronary artery without angina pectoris; I25.2 Old myocardial infarction; I25.5 Ischemic cardiomyopathy; I27.20 Pulmonary hypertension, unspecified; I08.3 Combined rheumatic disorders of mitral, aortic and tricuspid valves; I73.9 Peripheral vascular disease, unspecified; K76.1 Chronic passive congestion of liver; N18.9 Chronic kidney disease, unspecified; R29.6 Repeated falls; S00.83XA Contusion of other part of head, initial encounter; W19.XXXA Unspecified fall, initial encounter; Z79.82 Long term (current) use of aspirin; Z79.890 Hormone replacement therapy; Z79.899 Other long term (current) drug therapy; Z82.49 Family history of ischemic heart disease and other diseases of the circulatory system; Z97.0 Presence of artificial eye; I65.22 Occlusion and stenosis of left carotid artery; I49.1 Atrial premature depolarization; R55 Syncope and collapse
CPT/HCPCS: 36415; 70450; 71045; 71250; 72125; 72170; 80048; 80053; 80061; 81003; 82550; 83036; 83605; 83735; 83880; 84439; 84443; 84484; 85025; 85027; 85379; 85610; 85730; 87070; 93005; 93306; 93880; 96365; 96366; 96376; 99285

== ENCOUNTER 2020-04-20 04:03 | Inpatient (IN) | payer MEDICARE, OTHER ==
[2020-04-20] MEDS ORDERED: SODIUM CHLORIDE 0.9% 1,000 ML IV STA (04:11)
[2020-04-20] MEDS ORDERED: SODIUM CHLORIDE 0.9% 500 ML 500 ML IV STA (04:11)
--- NOTE | 2020-04-20 04:12 | ED ---
Fall HPI - General Chief Complaint: Fall Stated Complaint: Fall Time Seen by Provider: 04/20/20 04:06 Source: patient, EMS, RN notes reviewed, old records reviewed Mode of arrival: EMS Limitations: altered mental status, physical limitation - History of Present Illness Initial Comments: This is a 80-year-old male DF found status post fall. Patient gone upstairs to go to bed collapsible getting in bed was found between dresser and wall, multiple areas of bruising on patient's body secondary to multiple recent falls. Patient denies any significant complaints currently having some difficulty with breathing, history obtained from EMS as well as patient's family who was present, recent hospital admission MD Complaint: fall -: hour(s) Fall From: standing When Fall Occurred: 1 hour [employer] Fall Witnessed: no, yes, by family Loss of Consciousness: unsure Prolonged Down Time?: unclear Symptoms Prior to Fall: lightheadedness Location: head, face Severity: moderate Severity scale (1-10): 4 Context: tripped/slipped Associated Symptoms: denies - Related Data Home Medications Medication Instructions Recorded Confirmed Aspirin EC [Ecotrin Low Dose] 81 mg PO HS 04/11/20 04/20/20 Atorvastatin [Lipitor] 40 mg PO HS 04/12/20 04/20/20 Famotidine [Pepcid] 20 mg PO HS 04/12/20 04/20/20 Levothyroxine Sodium [Synthroid] 50 mcg PO DAILY 04/12/20 04/20/20 Lisinopril [Prinivil] 5 mg PO HS 04/12/20 04/20/20 Metoprolol Succinate [Toprol XL] 25 mg PO HS 04/12/20 04/20/20 Multivitamin/Iron/Folic Acid 1 tab PO HS 04/12/20 04/20/20 [Centrum Adults Tablet] [place]-3 Fatty Acids/Fish Oil [Fish 1 cap PO HS 04/12/20 04/20/20 Oil 1,000 mg Softgel] Previous Rx's Medication Instructions Recorded Furosemide [Lasix] 80 mg PO BID@0900,1600 #30 tab 04/17/20 Nitroglycerin Sl Tabs [Nitrostat] 0.4 mg SUBLINGUAL Q5M PRN #20 tab 04/17/20 Spironolactone [Aldactone] 25 mg PO DAILY #30 tab 04/17/20 Allergies Allergy/AdvReac Type Severity Reaction Status Date / Time No Known Allergies Allergy Verified 04/20/20 04:09 Review of Systems ROS Statement: Those systems with pertinent positive or pertinent negative responses have been documented in the HPI. ROS Other: All systems not noted in ROS Statement are negative. Past Medical History Past Medical History: Coronary Artery Disease (CAD), Heart Failure, GERD/Reflux, Hyperlipidemia, Hypertension, Myocardial Infarction ([place]), Syncope Additional Past Medical History / Comment(s): Aortic stenosis History of Any Multi-Drug Resistant Organisms: None Reported Past Surgical History: Heart Catheterization Additional Past Surgical History / Comment(s): prosthetic left eye Additional Past Anesthesia/Blood Transfusion Reaction / Comment(s): Anesthesia insomnia, never recieved blood Past Psychological History: No Psychological Hx Reported Smoking Status: Never smoker Past Alcohol Use History: None Reported Past Drug Use History: None Reported - Past Family History Father Family Medical History: Renal Disease Mother Family Medical History: Congestive Heart Failure (CHF), Renal Disease Brother(s) Additional Family Medical History / Comment(s): Valve replacement Sister(s) Family Medical History: AICD/Pacemaker General Exam Limitations: no limitations General appearance: alert, in no apparent distress, anxious, lethargic, in distress Head exam: Present: normocephalic, normal inspection. Absent: atraumatic (Multiple areas of bruising acute on chronic) Eye exam: Present: normal appearance, PERRL, EOMI. Absent: scleral icterus, conjunctival injection, periorbital swelling ENT exam: Present: normal exam, mucous membranes moist Neck exam: Present: normal inspection. Absent: tenderness, meningismus, lymphadenopathy Respiratory exam: Present: normal lung sounds bilaterally. Absent: respiratory distress, wheezes, rales, rhonchi, stridor Cardiovascular Exam: Present: regular rate, normal rhythm, normal heart sounds. Absent: systolic murmur, diastolic murmur, rubs, gallop, clicks GI/Abdominal exam: Present: soft, normal bowel sounds. Absent: distended, tenderness, guarding, rebound, rigid Extremities exam: Present: normal inspection, full ROM, normal capillary refill. Absent: tenderness, pedal edema, joint swelling, calf tenderness Back exam: Present: normal inspection Neurological exam: Present: alert, oriented X3, CN II-XII intact Psychiatric exam: Present: normal affect, normal mood Skin exam: Present: warm, dry, intact, normal color. Absent: rash Course Vital Signs 04/20/20 04/20/20 04/20/20 04:05 04:15 04:30 Temperature 97.7 F Pulse Rate 96 92 90 Respiratory 18 22 20 Rate Blood Pressure 74/47 70/52 60/38 O2 Sat by Pulse 95 94 L 92 L Oximetry 04/20/20 04/20/20 04/20/20 04:45 05:00 05:15 Temperature Pulse Rate 89 84 86 Respiratory 20 20 20 Rate Blood Pressure 96/80 78/60 76/45 O2 Sat by Pulse 94 L 94 L 94 L Oximetry 04/20/20 04/20/20 04/20/20 05:30 05:45 06:00 Temperature Pulse Rate 90 92 100 Respiratory 20 19 18 Rate Blood Pressure 71/51 57/43 68/49 O2 Sat by Pulse 95 92 L 92 L Oximetry 04/20/20 04/20/20 04/20/20 06:15 07:45 07:50 Temperature Pulse Rate 100 106 H 111 H Respiratory 18 26 H 21 Rate Blood Pressure 74/54 53/27 81/56 O2 Sat by Pulse 95 Oximetry - Reevaluation(s) Reevaluation #1: Medical record and prior hospitalization are reviewed Patient's severe distress. Blood pressure as well as multiple evidence of end organ damage on lab values patient remains alert without mental status and able to answer questions - Consultations Consultation #1: Spoke with ICU Dr. Russell for admission is agreeable Procedures - Central Line Placement Right IJ Consent Obtained: verbal consent Patient Placed on Monitor/Pulse Ox: Yes Prep: mask, gown, gloves Central Line Prep: Chlorhexidine scrub, sterile drapes applied Local Anesthesia Used: Lidocaine 1% Ultrasound Used for Placement: Yes Central Line Lumen Inserted: triple Central Line Position: sutured in place with 3-0 nylon Dressing Applied: Tegaderm Post Procedure X-Ray: tip of catheter in good position Patient Tolerated Procedure: well Complications: none Medical Decision Making - Medical Decision Making 80 male DF for evaluation Crohn condition for cardiogenic shock patient was found down after going to his bed, recent admission for syncope multiple areas of bruising, known low ejection fraction, multiple end organ dysfunction patient remains awake and alert able to answer questions in the ER requiring significant O2 support patient be admitted to the ICU for hemodynamic monitoring as he is on central line with the pressor support - Lab Data Result diagrams: 04/20/20 11:08 04/20/20 17:50 Lab Results 04/20/20 04/20/20 04/20/20 Range/Units 04:18 04:18 04:18 WBC 6.0 (3.8-10.6) k/uL RBC 3.06 L (4.30-5.90) m/uL Hgb 9.0 L D (13.0-17.5) gm/dL Hct 28.7 L (39.0-53.0) % MCV 93.7 (80.0-100.0) fL MCH 29.3 (25.0-35.0) pg MCHC 31.2 (31.0-37.0) g/dL RDW 15.7 H (11.5-15.5) % Plt Count 123 L (150-450) k/uL Neutrophils % 79 % Lymphocytes % 9 % Monocytes % 9 % Eosinophils % 1 % Basophils % 1 % Neutrophils # 4.7 (1.3-7.7) k/uL Lymphocytes # 0.5 L (1.0-4.8) k/uL Monocytes # 0.5 (0-1.0) k/uL Eosinophils # 0.1 (0-0.7) k/uL Basophils # 0.0 (0-0.2) k/uL Hypochromasia Slight PT 12.2 H (9.0-12.0) sec INR 1.2 H (<1.2) APTT 32.7 H (22.0-30.0) sec Sodium 137 (137-145) mmol/L Potassium 4.2 (3.5-5.1) mmol/L Chloride 107 (98-107) mmol/L Carbon Dioxide 17 L (22-30) mmol/L Anion Gap 13 mmol/L BUN 75 H (9-20) mg/dL Creatinine 3.42 H (0.66-1.25) mg/dL Est GFR (CKD-EPI)AfAm 19 (>60 ml/min/1.73 sqM) Est GFR (CKD-EPI)NonAf 16 (>60 ml/min/1.73 sqM) Glucose 137 H (74-99) mg/dL Lactic Ac Sepsis Rflx Plasma Lactic Acid Christian (0.7-2.0) mmol/L Calcium 6.8 L (8.4-10.2) mg/dL Phosphorus 6.5 H (2.5-4.5) mg/dL Magnesium 2.3 (1.6-2.3) mg/dL Total Bilirubin 1.2 (0.2-1.3) mg/dL AST 456 H (17-59) U/L ALT 166 H (4-49) U/L Alkaline Phosphatase 121 (38-126) U/L Creatine Kinase 729 H (55-170) U/L Troponin I (0.000-0.034) ng/mL NT-Pro-B Natriuret Pep pg/mL Total Protein 5.6 L (6.3-8.2) g/dL Albumin 2.8 L (3.5-5.0) g/dL Urine Color Urine Appearance (Clear) Urine pH (5.0-8.0) Ur Specific [place] (1.001-1.035) Urine Protein (Negative) Urine Glucose (UA) (Negative) Urine Ketones (Negative) Urine Blood (Negative) Urine Nitrite (Negative) Urine Bilirubin (Negative) Urine Urobilinogen (<2.0) mg/dL Ur Leukocyte Esterase (Negative) Urine WBC (0-5) /hpf Ur Squamous Epith Cells (0-4) /hpf Urine Sperm (None) /hpf Blood Type Blood Type Recheck Bld Type Recheck Status Antibody Screen Crossmatch Spec Expiration Date 04/20/20 04/20/20 04/20/20 Range/Units 04:18 04:18 04:18 WBC (3.8-10.6) k/uL RBC (4.30-5.90) m/uL Hgb (13.0-17.5) gm/dL Hct (39.0-53.0) % MCV (80.0-100.0) fL MCH (25.0-35.0) pg MCHC (31.0-37.0) g/dL RDW (11.5-15.5) % Plt Count (150-450) k/uL Neutrophils % % Lymphocytes % % Monocytes % % Eosinophils % % Basophils % % Neutrophils # (1.3-7.7) k/uL Lymphocytes # (1.0-4.8) k/uL Monocytes # (0-1.0) k/uL Eosinophils # (0-0.7) k/uL Basophils # (0-0.2) k/uL Hypochromasia PT (9.0-12.0) sec INR (<1.2) APTT (22.0-30.0) sec Sodium (137-145) mmol/L Potassium (3.5-5.1) mmol/L Chloride (98-107) mmol/L Carbon Dioxide (22-30) mmol/L Anion Gap mmol/L BUN (9-20) mg/dL Creatinine (0.66-1.25) mg/dL Est GFR (CKD-EPI)AfAm (>60 ml/min/1.73 sqM) Est GFR (CKD-EPI)NonAf (>60 ml/min/1.73 sqM) Glucose (74-99) mg/dL Lactic Ac Sepsis Rflx Plasma Lactic Acid Christian 3.3 H* (0.7-2.0) mmol/L Calcium (8.4-10.2) mg/dL Phosphorus (2.5-4.5) mg/dL Magnesium (1.6-2.3) mg/dL Total Bilirubin (0.2-1.3) mg/dL AST (17-59) U/L ALT (4-49) U/L Alkaline Phosphatase (38-126) U/L Creatine Kinase (55-170) U/L Troponin I 31.400 H* (0.000-0.034) ng/mL NT-Pro-B Natriuret Pep 60673 pg/mL Total Protein (6.3-8.2) g/dL Albumin (3.5-5.0) g/dL Urine Color Urine Appearance (Clear) Urine pH (5.0-8.0) Ur Specific [place] (1.001-1.035) Urine Protein (Negative) Urine Glucose (UA) (Negative) Urine Ketones (Negative) Urine Blood (Negative) Urine Nitrite (Negative) Urine Bilirubin (Negative) Urine Urobilinogen (<2.0) mg/dL Ur Leukocyte Esterase (Negative) Urine WBC (0-5) /hpf Ur Squamous Epith Cells (0-4) /hpf Urine Sperm (None) /hpf Blood Type Blood Type Recheck Bld Type Recheck Status Antibody Screen Crossmatch Spec Expiration Date 04/20/20 04/20/20 04/20/20 Range/Units 04:18 04:54 06:08 WBC (3.8-10.6) k/uL RBC (4.30-5.90) m/uL Hgb (13.0-17.5) gm/dL Hct (39.0-53.0) % MCV (80.0-100.0) fL MCH (25.0-35.0) pg MCHC (31.0-37.0) g/dL RDW (11.5-15.5) % Plt Count (150-450) k/uL Neutrophils % % Lymphocytes % % Monocytes % % Eosinophils % % Basophils % % Neutrophils # (1.3-7.7) k/uL Lymphocytes # (1.0-4.8) k/uL Monocytes # (0-1.0) k/uL Eosinophils # (0-0.7) k/uL Basophils # (0-0.2) k/uL Hypochromasia PT (9.0-12.0) sec INR (<1.2) APTT (22.0-30.0) sec Sodium (137-145) mmol/L Potassium (3.5-5.1) mmol/L Chloride (98-107) mmol/L Carbon Dioxide (22-30) mmol/L Anion Gap mmol/L BUN (9-20) mg/dL Creatinine (0.66-1.25) mg/dL Est GFR (CKD-EPI)AfAm (>60 ml/min/1.73 sqM) Est GFR (CKD-EPI)NonAf (>60 ml/min/1.73 sqM) Glucose (74-99) mg/dL Lactic Ac Sepsis Rflx Y Plasma Lactic Acid Christian (0.7-2.0) mmol/L Calcium (8.4-10.2) mg/dL Phosphorus (2.5-4.5) mg/dL Magnesium (1.6-2.3) mg/dL Total Bilirubin (0.2-1.3) mg/dL AST (17-59) U/L ALT (4-49) U/L Alkaline Phosphatase (38-126) U/L Creatine Kinase (55-170) U/L Troponin I (0.000-0.034) ng/mL NT-Pro-B Natriuret Pep pg/mL Total Protein (6.3-8.2) g/dL Albumin (3.5-5.0) g/dL Urine Color Dark Brown Urine Appearance Turbid (Clear) Urine pH 5.5 (5.0-8.0) Ur Specific [place] 1.020 (1.001-1.035) Urine Protein 3+ H (Negative) Urine Glucose (UA) Negative (Negative) Urine Ketones Negative (Negative) Urine Blood Small H (Negative) Urine Nitrite Negative (Negative) Urine Bilirubin Negative (Negative) Urine Urobilinogen 2.0 (<2.0) mg/dL Ur Leukocyte Esterase Moderate H (Negative) Urine WBC 18 H (0-5) /hpf Ur Squamous Epith Cells 7 H (0-4) /hpf Urine Sperm Many H (None) /hpf Blood Type O Positive Blood Type Recheck No Previous Record Bld Type Recheck Status CABO Indicated Antibody Screen NEGATIVE Crossmatch See Detail Spec Expiration Date 04/23/2020 - 9330 - EKG Data -: EKG Interpreted by Me (EKG shows sinus rhythm of 95, NE 184, QRS 120, QTc 477) - Radiology Data Radiology results: report reviewed (CT brain C-spine negative for acute disease chest x-ray shows significant CHF, pelvis x-rays atraumatic), image reviewed Critical Care Time Critical Care Time: Yes Total Critical Care Time: 31 Disposition Clinical Impression: Fall, Elevated troponin, Syncopal episodes, Cardiogenic shock, Acute renal failure, Weakness Disposition: ADMITTED IP TO THIS [facility] Condition: Serious Is patient prescribed a controlled substance at d/c from ED?: No
[2020-04-20] MEDS: SODIUM CHLORIDE 0.9% 1,000 ML IV STA ×3 (04:16→16:00)
--- NOTE | 2020-04-20 04:40 | CT ---
EXAMINATION TYPE: CT brain cspine wo con DATE OF EXAM: 04/20/2020 COMPARISON: 04/11/2020 HISTORY: fall CT DLP: 1333.1 mGycm Automated exposure control for dose reduction was used. CT brain and cervical spine without contrast. There is diffuse cerebral cortical atrophy. There is no mass effect nor midline shift. There is no si gn of intracranial hemorrhage. There is hypodensity in the periventricular white matter in both poste rior parietal lobes. There is mild enlargement of the ventricles. The calvarium is intact. There is some straightening of the cervical spine. There is 4 mm anterior subluxation of C4 in relati on to C5. Skull base is intact. The facet joints show mild hypertrophic degenerative changes. There i s no evidence for fracture. IMPRESSION: There is a mild degenerative first-degree C4-5 spondylolisthesis unchanged. No fracture. Multilevel spondylotic changes. Cerebral atrophy and chronic small vessel ischemia. No acute intracranial abnormality. Brain unchange d compared to old exam.
--- NOTE | 2020-04-20 04:42 | XR ---
EXAMINATION TYPE: XR chest 1V portable DATE OF EXAM: 04/20/2020 COMPARISON: 04/11/2020 HISTORY: Fall. Chest pain TECHNIQUE: FINDINGS: Heart is enlarged. There is some pulmonary vascular congestion. There is right-sided perihi lar pulmonary infiltrate. There is no definite pleural effusion. There are chest leads. IMPRESSION: Mild congestive heart failure. There is significant improved aeration of the lower lung f ields compared to recent exam. There is some mild right perihilar pulmonary infiltrate increased comp ared to old exam.
[2020-04-20 04:43] LABS: Basophils % (A) 1 %; Eosinophils # (A) 0.1 k/uL (0-0.7); Eosinophils % (A) 1 %; HCT 28.7 % (39.0-53.0); Hypochromasia Slight; Lymphocytes # (A) 0.5 k/uL (1.0-4.8); Lymphocytes % (A) 9 %; MCH 29.3 pg (25.0-35.0); MCHC 31.2 g/dL (31.0-37.0); MCV 93.7 fL (80.0-100.0); Mean Platelet Volume 10.9; Monocytes # (A) 0.5 k/uL (0-1.0); Monocytes % (A) 9 %; Neutrophils # (A) 4.7 k/uL (1.3-7.7); Neutrophils % (A) 79 %; Platelet Count 123 k/uL (150-450); RBC 3.06 m/uL (4.30-5.90); RDW 15.7 % (11.5-15.5)
--- NOTE | 2020-04-20 04:43 | XR ---
EXAMINATION TYPE: XR pelvis AP view DATE OF EXAM: 04/20/2020 COMPARISON: NONE HISTORY: Fall. Pain. TECHNIQUE: FINDINGS: The pelvic ring is intact. Proximal femurs and hip joints appear intact. There is no sign o f hip dysplasia. Sacroiliac joints appear normal. IMPRESSION: No acute abnormality of the pelvis.
[2020-04-20 04:54] LABS: INR 1.2 (<1.2); Partial Thromboplastin Time 32.7 sec (22.0-30.0); Prothrombin Time 12.2 sec (9.0-12.0)
[2020-04-20 05:06] LABS: Albumin 2.8 g/dL (3.5-5.0); Calcium 6.8 mg/dL (8.4-10.2); Magnesium 2.3 mg/dL (1.6-2.3); Phosphorus 6.5 mg/dL (2.5-4.5); Potassium 4.2 mmol/L (3.5-5.1); Total Bilirubin 1.2 mg/dL (0.2-1.3); Total Protein 5.6 g/dL (6.3-8.2)
[2020-04-20] MEDS ORDERED: DOPamine DRIP 800 MG in DEXTROSE/WATER 1 250ML.BAG IV ONE (05:13)
[2020-04-20] MEDS ORDERED: NALOXONE 0.4 MG/ML 1 ML VIAL IV PRN (06:21)
[2020-04-20] MEDS ORDERED: PANTOPRAZOLE 40 MG TABLET PO STA (06:21)
[2020-04-20] MEDS ORDERED: IPRATROPIUM-ALBUTEROL 3 ML NEB INHALATION PRN (06:21)
[2020-04-20] MEDS ORDERED: NOREPINEPHRINE 32 MG in SODIUM CHLORIDE 0.9% 218 ML IV ONE (06:30)
[2020-04-20 06:35] LABS: Appearance,Urine Turbid (Clear); Bilirubin,Urine Negative (Negative); Blood,Urine Small (Negative); Color,Urine Dark Brown; Glucose,Urine (UA) Negative (Negative); Ketones,Urine Negative (Negative); Leukocyte Esterase,Urine Moderate (Negative); Nitrite,Urine Negative (Negative); PH, Urine 5.5 (5.0-8.0); Protein,Urine 3+ (Negative); Sperm,Urine Many /hpf; Squamous Epithelial Cell,Urine 7 /hpf (0-4); WBC,Urine 18 /hpf (0-5)
--- NOTE | 2020-04-20 06:40 | XR ---
EXAMINATION TYPE: XR chest 1V confirm line [facility] DATE OF EXAM: 04/20/2020 COMPARISON: Today HISTORY: Check line placement TECHNIQUE: FINDINGS: Single view shows right jugular catheter with the tip in the superior vena cava. There is p ulmonary vascular congestion and pulmonary interstitial edema. Heart is enlarged. Thoracic aorta is a theromatous. There are chest leads. IMPRESSION: Pulmonary interstitial edema consistent with congestive heart failure that is the same or slightly worse than exam 2 hours ago.
[2020-04-20] MEDS ORDERED: LORazepam 2 MG/ML INJ IV STA (06:59)
[2020-04-20 07:44] LABS: Glucose,Whole Blood 148 mg/dL (75-99)
[2020-04-20 08:41] LABS: ABG Base Excess -8.9 mmol/L; ABG HCO3 18 mmol/L (21-25); ABG Oxygen Saturation 95.1 % (94-97); ABG PCO2 37 mmHg (35-45); ABG PH 7.29 (7.35-7.45); ABG PO2 94 mmHg (83-108); ABG TCO2 19 mmol/L (19-24); Allen Test Performed? Yes
[2020-04-20] MEDS ORDERED: FUROSEMIDE 10 MG/ML 10 ML VIAL IV STA (08:53)
[2020-04-20] MEDS ORDERED: ONDANSETRON 4 MG/2 ML VIAL IVP PRN (08:55)
[2020-04-20] MEDS ORDERED: LEVOTHYROXINE 50 MCG TAB PO SCH (09:00)
--- NOTE | 2020-04-20 09:07 | P.HPIM ---
History of Present Illness This is a pleasant 80 years old male with past medical history of coronary artery disease, heart failure, gastroesophageal reflux disease, hyperlipidemia, hypertension, aortic stenosis, syncope. He is a patient of Josemanuel Varghese. He was in the hospital 3 days ago for syncope. Patient is found unresponsive between his couch and furniture, looks like the patient fell on his face and there are bruises and multiple areas of the forehead and cheeks. No deformity. Also he has bruise and pain in his left leg. This morning his fully awake and oriented however his shortness of breath and he needs 50 L of oxygen via nonrebreather. He denies chest pain or coughing. No abdominal pain, no diarrhea. However patient has Carballo catheter is anuric since admission. On admission patient is hypotensive 74/47. Currently his blood pressure is 74/54. Heart rate is 100, and patient is afebrile Labs showing WBC of 6.0, hemoglobin 9 compared to 13.5 about 3 days ago. INR is 1.2. Normal electrolytes, creatinine is elevated at 3.4, baseline is 1.1, 3 days ago. Elevated lactic acid of 3.3, troponin is high at 31.4. Urinalysis is suspicious of infection with moderate leukocyte esterase and 18 WBC Chest x-ray: CHF. EKG showing, showing alma rosa-apical and anterolateral ischemia with ST depression. QTC is 477 Pelvic x-ray: No fracture. CT of the brain: No acute process of the brain of the cervical spine On admission patient received Ativan, Protonix and more than 1 L and a half of normal saline and a started at a rate of 1 30 mL/h. Also needed dopamine He is currently on dopamine and Levophed infusion. Echocardiogram was taking, pulmonary results showing low ejection fraction around 20% and possible aortic stenosis. End and final report Review of Systems CONSTITUTIONAL: No fever, no malaise, no fatigue. HEENT: No recent visual problems or hearing problems. Denied any sore throat. CARDIOVASCULAR: no palpitations, no syncope. PULMONARY: no cough, no hemoptysis. GASTROINTESTINAL: No diarrhea, no nausea, no vomiting, no abdominal pain. Normoactive bowel sounds. NEUROLOGICAL: No headaches, no weakness, no numbness. HEMATOLOGICAL: Denies any bleeding or petechiae. GENITOURINARY: Denies any burning micturition, frequency, or urgency. MUSCULOSKELETAL/RHEUMATOLOGICAL: Denies any joint pain, swelling, or any muscle pain. ENDOCRINE: Denies any polyuria or polydipsia. Past Medical History Past Medical History: Coronary Artery Disease (CAD), Heart Failure, GERD/Reflux, Hyperlipidemia, Hypertension, Myocardial Infarction ([place]), Syncope Additional Past Medical History / Comment(s): Aortic stenosis History of Any Multi-Drug Resistant Organisms: None Reported Past Surgical History: Heart Catheterization Additional Past Surgical History / Comment(s): prosthetic left eye Additional Past Anesthesia/Blood Transfusion Reaction / Comment(s): Anesthesia insomnia, never recieved blood Past Psychological History: No Psychological Hx Reported Smoking Status: Never smoker Past Alcohol Use History: None Reported Past Drug Use History: None Reported - Past Family History Father Family Medical History: Renal Disease Mother Family Medical History: Congestive Heart Failure (CHF), Renal Disease Brother(s) Additional Family Medical History / Comment(s): Valve replacement Sister(s) Family Medical History: AICD/Pacemaker Medications and Allergies Home Medications Medication Instructions Recorded Confirmed Type Aspirin EC [Ecotrin Low Dose] 81 mg PO HS 04/11/20 04/20/20 History Atorvastatin [Lipitor] 40 mg PO HS 04/12/20 04/20/20 History Famotidine [Pepcid] 20 mg PO HS 04/12/20 04/20/20 History Levothyroxine Sodium [Synthroid] 50 mcg PO DAILY 04/12/20 04/20/20 History Lisinopril [Prinivil] 5 mg PO HS 04/12/20 04/20/20 History Metoprolol Succinate [Toprol XL] 25 mg PO HS 04/12/20 04/20/20 History Multivitamin/Iron/Folic Acid 1 tab PO HS 04/12/20 04/20/20 History [Centrum Adults Tablet] [place]-3 Fatty Acids/Fish Oil [Fish 1 cap PO HS 04/12/20 04/20/20 History Oil 1,000 mg Softgel] Furosemide [Lasix] 80 mg PO BID@0900,1600 #30 tab 04/17/20 04/20/20 Rx Nitroglycerin Sl Tabs [Nitrostat] 0.4 mg SUBLINGUAL Q5M PRN #20 tab 04/17/20 04/20/20 Rx Spironolactone [Aldactone] 25 mg PO DAILY #30 tab 04/17/20 04/20/20 Rx Allergies Allergy/AdvReac Type Severity Reaction Status Date / Time No Known Allergies Allergy Verified 04/20/20 04:09 Physical Exam Vitals: Vital Signs Temp Pulse Resp BP Pulse Ox 04/20/20 06:15 100 18 74/54 95 04/20/20 06:00 100 18 68/49 92 L 04/20/20 05:45 92 19 57/43 92 L 04/20/20 05:30 90 20 71/51 95 04/20/20 05:15 86 20 76/45 94 L 04/20/20 05:00 84 20 78/60 94 L 04/20/20 04:45 89 20 96/80 94 L 04/20/20 04:30 90 20 60/38 92 L 04/20/20 04:15 92 22 70/52 94 L 04/20/20 04:05 97.7 F 96 18 74/47 95 Intake and Output 04/19/20 04/20/20 04/20/20 22:59 06:59 14:59 Other: Weight 90.718 kg GENERAL: The patient is alert and oriented x3, not in any acute distress. Well developed, well nourished. HEENT: Pupils are round and equally reacting to light. EOMI. No scleral icterus. No conjunctival pallor. Normocephalic, atraumatic. No pharyngeal erythema. No thyromegaly. Multiple bruises on the face CARDIOVASCULAR: S1 and S2 present. No murmurs, rubs, or gallops. -PULMONARY: Chest is clear to auscultation, no wheezing. Bilateral basal crepitation ABDOMEN: Soft, nontender, nondistended, normoactive bowel sounds. No palpable organomegaly. MUSCULOSKELETAL: No joint swelling or deformity. EXTREMITIES: No cyanosis, clubbing, or pedal edema. NEUROLOGICAL: Gross neurological examination did not reveal any focal deficits. SKIN: No rashes. No petechiae. Multiple bruise on the face and left leg Results CBC & Chem 7: 04/20/20 04:18 04/20/20 04:18 Labs: Abnormal Lab Results - Last 24 Hours (Table) 04/20/20 04/20/20 04/20/20 Range/Units 04:18 04:18 04:18 RBC 3.06 L (4.30-5.90) m/uL Hgb 9.0 L D (13.0-17.5) gm/dL Hct 28.7 L (39.0-53.0) % RDW 15.7 H (11.5-15.5) % Plt Count 123 L (150-450) k/uL Lymphocytes # 0.5 L (1.0-4.8) k/uL PT 12.2 H (9.0-12.0) sec INR 1.2 H (<1.2) APTT 32.7 H (22.0-30.0) sec Carbon Dioxide 17 L (22-30) mmol/L BUN 75 H (9-20) mg/dL Creatinine 3.42 H (0.66-1.25) mg/dL Glucose 137 H (74-99) mg/dL Plasma Lactic Acid Christian (0.7-2.0) mmol/L Calcium 6.8 L (8.4-10.2) mg/dL Phosphorus 6.5 H (2.5-4.5) mg/dL AST 456 H (17-59) U/L ALT 166 H (4-49) U/L Creatine Kinase 729 H (55-170) U/L Troponin I (0.000-0.034) ng/mL Total Protein 5.6 L (6.3-8.2) g/dL Albumin 2.8 L (3.5-5.0) g/dL Crossmatch 04/20/20 04/20/20 04/20/20 Range/Units 04:18 04:18 04:18 RBC (4.30-5.90) m/uL Hgb (13.0-17.5) gm/dL Hct (39.0-53.0) % RDW (11.5-15.5) % Plt Count (150-450) k/uL Lymphocytes # (1.0-4.8) k/uL PT (9.0-12.0) sec INR (<1.2) APTT (22.0-30.0) sec Carbon Dioxide (22-30) mmol/L BUN (9-20) mg/dL Creatinine (0.66-1.25) mg/dL Glucose (74-99) mg/dL Plasma Lactic Acid Christian 3.3 H* (0.7-2.0) mmol/L Calcium (8.4-10.2) mg/dL Phosphorus (2.5-4.5) mg/dL AST (17-59) U/L ALT (4-49) U/L Creatine Kinase (55-170) U/L Troponin I 31.400 H* (0.000-0.034) ng/mL Total Protein (6.3-8.2) g/dL Albumin (3.5-5.0) g/dL Crossmatch See Detail Assessment and Plan Assessment: Cardiogenic shock, with acute on chronic systolic CHF Coronary artery disease, rule out acute coronary syndrome with elevated troponin Possible Aortic stenosis Acute Anemia, unknown etiology anuric Acute kidney injury Elevated Lactic acid Possible acute urinary tract infection Fall and syncope Gastroesophageal reflux disease Hypertension Hyperlipidemia History of aortic stenosis History of syncope Plan: This is a pleasant 80 years old male who presents with cardiogenic shock, AK I. Possible UTI, anemia, elevated troponin. Continue with ICU management. Pulmonary/critical care team is consulted. Continue with IV fluids. cardiology consult and echocardiogram. Continue with aspirin. We'll start ceftriaxone and check for pro-calcitonin. Renal ultrasound is ordered. Continue with Pr otonix. Check left leg ultrasound, also left leg x-ray We will do anemia workup with iron studies, B12 and acute blood in stool, monitor hemoglobin and transfuse if further dropping in hemoglobin Labs and medication were reviewed.. Continue same treatment. Continue with symptomatic treatment. Resume home medication. Monitor lytes and vitals. DVT and GI prophylaxis. Further recommendations of the clinical course of the patient DVT prophylaxis: No heparin in view of acute anemia GI Prophylaxis: Ppi Prognosis is guarded
[2020-04-20] MEDS ORDERED: LEVOTHYROXINE IVP 100 MCG/5 ML VIAL IV SCH (09:15)
--- NOTE | 2020-04-20 09:39 | XR ---
EXAMINATION TYPE: XR tibia fibula LT DATE OF EXAM: 04/20/2020 COMPARISON: NONE HISTORY: pain TECHNIQUE: Two views are submitted. FINDINGS: The osseous structures are intact. Vascular calcifications noted. Arthropathy of the joint spaces. possible loose bodies posterior knee joint. IMPRESSION: 1. No acute osseous abnormality. 2. Arthropathy
[2020-04-20 09:59] LABS: Basophils # (A) 0.1 k/uL (0-0.2); Basophils % (A) 1 %; Eosinophils % (A) 0 %; HCT 45.2 % (39.0-53.0); Hypochromasia Slight; Lymphocytes # (A) 0.9 k/uL (1.0-4.8); Lymphocytes % (A) 8 %; MCHC 29.9 g/dL (31.0-37.0); MCV 93.6 fL (80.0-100.0); Mean Platelet Volume 11.1; Monocytes # (A) 1.1 k/uL (0-1.0); Monocytes % (A) 10 %; Neutrophils % (A) 79 %; RBC 4.83 m/uL (4.30-5.90); RDW 15.4 % (11.5-15.5); WBC 11.4 k/uL (3.8-10.6)
[2020-04-20] MEDS ORDERED: SODIUM BICARBONATE TAB 650 MG TAB PO SCH (10:15)
--- NOTE | 2020-04-20 10:15 | P.NPCON ---
History of Present Illness - Reason for Consult acute renal failure - History of Present Illness Reason for consultation: Acute kidney injury History of present illness: Patient is a 80-year-old male seen in renal consultation for acute kidney injury. Patient was [facility] unresponsive on [facility] and was sent to the hospital. He does have bruises on his face and it appears that he sustained a fall. He is currently on a nonrebreather. He is awake and alert. He denies chest pain or shortness of breath. He denies vomiting or diarrhea. Patient's blood pressure on admission was in the systolic 5070s. He did receive 2.5 L normal saline bolus and is currently maintained on normal saline at 130 mL an hour. He is also on 17 mics of Levophed and 4 mics of dopamine at this time. His blood pressure still in the systolic 60s to 70s. Patient is currently oliguric. Creatinine was 3.4-1 admission. His baseline creatinine from earlier this month is near 1. Chest x-ray did reveal pulmonary vascular congestion. 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 He was maintained on lisinopril as well as Aldactone at home. These are both currently held. He denies use of nonsteroidals. No history of diabetes. Vital signs: Blood pressure low. Tachycardic. On vasopressor support. General: The patient appeared well nourished and normally developed. HEENT: Head exam is unremarkable. Neck is without jugular venous distension. LUNGS: Breath sounds decreased. HEART: Sinus tachycardia. Murmur present. ABDOMEN: Soft, nontender. EXTREMITITES: No clubbing, cyanosis, or edema. Past Medical History Past Medical History: Coronary Artery Disease (CAD), Heart Failure, GERD/Reflux, Hyperlipidemia, Hypertension, Myocardial Infarction ([place]), Syncope Additional Past Medical History / Comment(s): Aortic stenosis History of Any Multi-Drug Resistant Organisms: None Reported Past Surgical History: Heart Catheterization Additional Past Surgical History / Comment(s): prosthetic left eye Additional Past Anesthesia/Blood Transfusion Reaction / Comment(s): Anesthesia insomnia, never recieved blood Past Psychological History: No Psychological Hx Reported Smoking Status: Never smoker Past Alcohol Use History: None Reported Past Drug Use History: None Reported - Past Family History Father Family Medical History: Renal Disease Mother Family Medical History: Congestive Heart Failure (CHF), Renal Disease Brother(s) Additional Family Medical History / Comment(s): Valve replacement Sister(s) Family Medical History: AICD/Pacemaker Medications and Allergies Home Medications Medication Instructions Recorded Confirmed Type Aspirin EC [Ecotrin Low Dose] 81 mg PO HS 04/11/20 04/20/20 History Atorvastatin [Lipitor] 40 mg PO HS 04/12/20 04/20/20 History Famotidine [Pepcid] 20 mg PO HS 04/12/20 04/20/20 History Levothyroxine Sodium [Synthroid] 50 mcg PO DAILY 04/12/20 04/20/20 History Lisinopril [Prinivil] 5 mg PO HS 04/12/20 04/20/20 History Metoprolol Succinate [Toprol XL] 25 mg PO HS 04/12/20 04/20/20 History Multivitamin/Iron/Folic Acid 1 tab PO HS 04/12/20 04/20/20 History [Centrum Adults Tablet] Dunning-3 Fatty Acids/Fish Oil [Fish 1 cap PO HS 04/12/20 04/20/20 History Oil 1,000 mg Softgel] Furosemide [Lasix] 80 mg PO BID@0900,1600 #30 tab 04/17/20 04/20/20 Rx Nitroglycerin Sl Tabs [Nitrostat] 0.4 mg SUBLINGUAL Q5M PRN #20 tab 04/17/20 04/20/20 Rx Spironolactone [Aldactone] 25 mg PO DAILY #30 tab 04/17/20 04/20/20 Rx Allergies Allergy/AdvReac Type Severity Reaction Status Date / Time No Known Allergies Allergy Verified 04/20/20 04:09 Physical Exam Vitals: Vital Signs Temp Pulse Resp BP Pulse Ox 04/20/20 08:10 113 H 25 H 96/73 04/20/20 08:05 111 H 16 77/46 04/20/20 08:00 110 H 26 H 97/72 98 04/20/20 07:50 111 H 21 81/56 04/20/20 07:45 106 H 27 H 53/27 04/20/20 06:15 100 18 74/54 95 04/20/20 06:00 100 18 68/49 92 L 04/20/20 05:45 92 19 57/43 92 L 04/20/20 05:30 90 20 71/51 95 04/20/20 05:15 86 20 76/45 94 L 04/20/20 05:00 84 20 78/60 94 L 04/20/20 04:45 89 20 96/80 94 L 04/20/20 04:30 90 20 60/38 92 L 04/20/20 04:15 92 22 70/52 94 L 04/20/20 04:05 97.7 F 96 18 74/47 95 Intake and Output 04/19/20 04/20/20 04/20/20 22:59 06:59 14:59 Intake Total 166.004 Balance 166.004 Intake: IV 130 Sodium Chloride 0.9% 1, 130 000 ml @ 130 mls/hr IV . Q7H42M STA Rx#:[id number] Intake, IV Titration 36.004 Amount DOPamine DRIP 800 mg In 20.27 Dextrose/Water 1 250ml. bag @ 5 MCG/KG/MIN 8.505 mls/hr IV .Q24H ONE Rx#: [id number] Norepinephrine 32 mg In 15.734 Sodium Chloride 0.9% 218 ml @ 0.05 MCG/KG/MIN 2. 126 mls/hr IV .Q24H ONE Rx#:[id number] Other: Weight 90.718 kg Results - Lab Results Most recent lab results ABG pH 7.29 (7.35-7.45) L 04/20/20 08:39 ABG pCO2 37 mmHg (35-45) 04/20/20 08:39 ABG pO2 94 mmHg (83-108) 04/20/20 08:39 ABG HCO3 18 mmol/L (21-25) L 04/20/20 08:39 ABG O2 Saturation 95.1 % (94-97) 04/20/20 08:39 Calcium 6.8 mg/dL (8.4-10.2) L 04/20/20 04:18 Phosphorus 6.5 mg/dL (2.5-4.5) H 04/20/20 04:18 Magnesium 2.3 mg/dL (1.6-2.3) 04/20/20 04:18 04/20/20 04:18 04/20/20 04:18 Assessment and Plan Plan: Assessment: 1. Acute kidney injury secondary to ATN secondary to hypotension. Creatinine 3.42 this morning. Baseline creatinine 1-1.1. 2. Cardiogenic shock maintained on dopamine and Levophed. 3. Systolic CHF with ejection fraction of 20-25% with mild to moderate aortic regurgitation and moderate to severe aortic stenosis. 4. Metabolic acidosis secondary to acute kidney injury and lactic acidosis. This is type a lactic acidosis due to hypoperfusion. 5. Hyperphosphatemia secondary to acute kidney injury. Plan: I will decrease it of normal saline to 75 mL an hour. Need to be cautious with IV fluids due to underlying cardiomyopathy. Wean vasopressors. Add oral sodium bicarbonate. Follow-up renal ultrasound. Follow-up echocardiogram. Repeat chest x-ray tomorrow. Lasix 80 mg IV once today. Recheck BMP this evening. Continue to monitor renal function and urine output closely. I did discuss potential need for renal replacement therapy if no improvement in his renal function and urine output. Patient understands and is willing to proceed with renal replacement therapy if needed. Thank you for the consultation. I will continue to follow the patient with you during his hospital stay.
--- NOTE | 2020-04-20 10:17 | US ---
EXAMINATION TYPE: US venous doppler duplex LE DATE OF EXAM: 04/20/2020 9:44 AM COMPARISON: NONE CLINICAL HISTORY: Rule out DVT. Patient fell resulting in left leg ecchymosis. Patient stated had génesis ateral GSV stripped. SIDE PERFORMED: Bilateral TECHNIQUE: The lower extremity deep venous system is examined utilizing real time linear array sonog ar with graded compression, doppler sonography and color-flow sonography. VESSELS IMAGED: Common Femoral Vein Deep Femoral Vein Greater Saphenous Vein *(GSV) Femoral Vein Popliteal Vein Small Saphenous Vein * Proximal Calf Veins (* superficial vessels) Right Leg: Negative for DVT Left Leg: Negative for DVT IMPRESSION: No evidence for DVT at this time.
[2020-04-20] MEDS ORDERED: CISATRACURIUM 2 MG/ML 5 ML VIAL IV ONE (10:30)
[2020-04-20] MEDS ORDERED: PROPOFOL 100 ML IV ONE (10:33)
[2020-04-20 10:57] LABS: HGB 13.5 gm/dL (13.0-17.5); Platelet Count 197 k/uL (150-450)
[2020-04-20] MEDS ORDERED: HEPARIN SODIUM,PORCINE 5,000 UNIT/ML 1 ML VIAL IV PRN (10:57)
[2020-04-20 10:58] LABS: ABG Base Excess -16.9 mmol/L; ABG HCO3 12 mmol/L (21-25); ABG Oxygen Saturation 98.6 % (94-97); ABG PCO2 31 mmHg (35-45); ABG PO2 207 mmHg (83-108); ABG TCO2 13 mmol/L (19-24); Allen Test Performed? Yes
[2020-04-20 11:00] LABS: ABG PH 7.18 (7.35-7.45)
[2020-04-20] MEDS ORDERED: HEPARIN SOD,PORK IN 0.45% NACL 25,000 UNIT in 0.45% NACL 1 250ML.BAG IV SCH (11:00)
[2020-04-20] MEDS: PROPOFOL 1,000 MG in EMPTY BAG 1 BAG IV SCH ×2 (11:00→16:36)
--- NOTE | 2020-04-20 11:00 | ECHOF ---
Referral Reason:chest pain MEASUREMENTS -------- HEIGHT: 180.3 cm WEIGHT: 84.8 kg BP: IVSd: 1.3 cm (0.6 - 1.1) LVIDd: 5.9 cm (3.9 - 5.3) LVPWd: 0.9 cm (0.6 - 1.1) IVSs: 1.5 cm LVIDs: 5.7 cm LVPWs: 0.9 cm LAESV Index (A-L): 58.14 ml/m Ao Diam: 3.1 cm (2.0 - 3.7) AV Cusp: 0.8 cm (1.5 - 2.6) LA Diam: 3.9 cm (2.7 - 3.8) MV EXCURSION: 12.148 mm (> 18.000) MV EF SLOPE: 62 mm/s (70 - 150) EPSS: 3.9 cm MV E Benton: 0.97 m/s MV DecT: 118 ms MV A Benton: 0.33 m/s MV E/A Ratio: 2.93 AV maxP.01 mmHg AV meanP.46 mmHg AR PHT: 248 ms RAP: 20.00 mmHg RVSP: 69.50 mmHg FINDINGS -------- Sinus rhythm. This was a technically good study. The left ventricle is mildly dilated. Left ventricular wall thickness is normal. There is severe global hypokinesis of LV . Overall left ventricular systolic function is severely impaired with, an EF < 20%. Increased LAP Grade 3 Diastolic Dysfunction. The right ventricle is normal in size. LA is severely dilated >40 ml/m2 The right atrial size is normal. Aortic valve is trileaflet and is severely thickened. There is mild aortic regurgitation. Peak/me an gradient across the Aortic Valve is 25.01mmHg / 16.46mmHg. Gradient not reflecting due to low EF. The mitral valve is normal. The mitral valve leaflets are mildly thickened. Mild mitral annular c alcification present. Moderate mitral regurgitation is present. The tricuspid valve appears structurally normal. Mild tricuspid regurgitation present. There is s evere pulmonary hypertension. The right ventricular systolic pressure, as measured by Doppler, is 6 9.50mmHg. Trace/mild (physiologic) pulmonic regurgitation. The aortic root size is normal. The inferior vena cava is dilated with no significant inspiratory collapse which is consistent estima marleny right atrial pressure of >20 mmHg. There is no pericardial effusion. CONCLUSIONS -------- 1. Sinus rhythm. 2. This was a technically good study. 3. The left ventricle is mildly dilated. 4. Left ventricular wall thickness is normal. 5. There is severe global hypokinesis of LV . 6. Overall left ventricular systolic function is severely impaired with, an EF < 20%. 7. Increased LAP Grade 3 Diastolic Dysfunction. 8. The right ventricle is normal in size. 9. LA is severely dilated >40 ml/m2 10. The right atrial size is normal. 11. Aortic valve is trileaflet and is severely thickened. 12. There is mild aortic regurgitation. 13. Peak/mean gradient across the Aortic Valve is 25.01mmHg / 16.46mmHg. Gradient not reflecting due to low EF. 14. The mitral valve is normal. 15. The mitral valve leaflets are mildly thickened. 16. Mild mitral annular calcification present. 17. Moderate mitral regurgitation is present. 18. The tricuspid valve appears structurally normal. 19. Mild tricuspid regurgitation present. 20. There is severe pulmonary hypertension. 21. The right ventricular systolic pressure, as measured by Doppler, is 69.50mmHg. 22. Trace/mild (physiologic) pulmonic regurgitation. 23. The aortic root size is normal. 24. The inferior vena cava is dilated with no significant inspiratory collapse which is consistent es timated right atrial pressure of >20 mmHg. 25. There is no pericardial effusion. INSPECTION ENGINEER: Arpita Talbot [facility]
--- NOTE | 2020-04-20 11:14 | US ---
EXAMINATION TYPE: US kidneys/renal and bladder DATE OF EXAM: 04/20/2020 COMPARISON: NONE CLINICAL HISTORY: 80-year-old male QUIQUE. TECHNIQUE: Multiple sonographic images of the kidneys and bladder are obtained. FINDINGS: EXAM MEASUREMENTS: Right Kidney: 9.9 x 6.2 x 4.6 cm Left Kidney: 11.0 x 5.6 x 5.1 cm Post Void Residual Volume: not assessed as Carballo Catheter is present Right Kidney: No hydronephrosis. Left Kidney: inferior pole simple cyst is seen = 1.7 x 1.8 x 1.8cm. No hydronephrosis. Bladder: Carballo Catheter is noted within thick walled bladder vs. internal contents noted surrounding Carballo Catheter Incidental findings: Small bilateral Pleural Effusions are seen with Right side greater than Left. IMPRESSION: 1. No hydronephrosis. Benign 1.8 cm left lower pole renal cyst. 2. Carballo catheter in place collapsing the bladder. There is bladder wall thickening. Correlate to exc lude cystitis. 3. Small right greater than left pleural effusions.
--- NOTE | 2020-04-20 11:18 | XR ---
EXAMINATION TYPE: XR chest 1V portable DATE OF EXAM: 04/20/2020 Comparison: 04/20/2020 Clinical History: 80-year-old male Tube placement Findings: ET tube is satisfactory. NG tube courses below the diaphragm. Right IJ CVC tip lower SVC. Loss of the subacromial space on both sides which can be seen with chronic full-thickness rotator cuff tears. Mi ld interstitial prominence. Heart borderline enlarged. Mild patchy peripheral right basilar density. Impression: 1. Satisfactory ET and NG tubes. 2. Perihilar and interstitial densities show partial improvement from prior. Correlate for improving, now mild CHF. 3. Some patchy infiltrate versus atelectasis at the peripheral right base.
[2020-04-20] MEDS ORDERED: SODIUM CHLORIDE 0.9% 1,000 ML IV ONE (11:30)
[2020-04-20 11:36] LABS: Anisocytosis (M) Present; Poikilocytosis (M) Present
[2020-04-20 11:42] LABS: INR 1.2 (<1.2); Partial Thromboplastin Time 30.4 sec (22.0-30.0); Prothrombin Time 11.7 sec (9.0-12.0)
[2020-04-20 11:45] LABS: Albumin 3.7 g/dL (3.5-5.0); Calcium 9.4 mg/dL (8.4-10.2); Magnesium 2.8 mg/dL (1.6-2.3); Potassium 5.9 mmol/L (3.5-5.1); Total Bilirubin 1.8 mg/dL (0.2-1.3)
[2020-04-20 11:47] VITALS: BP 91/57
[2020-04-20 12:08] LABS: Basophils % (A) 0 %; Eosinophils % (A) 0 %; HCT 42.2 % (39.0-53.0); HGB 12.8 gm/dL (13.0-17.5); Hypochromasia Moderate; Lymphocytes % (A) 9 %; MCH 28.6 pg (25.0-35.0); MCHC 30.4 g/dL (31.0-37.0); MCV 94.1 fL (80.0-100.0); Mean Platelet Volume 12.3; Monocytes % (A) 9 %; Neutrophils # (A) 9.3 k/uL (1.3-7.7); Neutrophils % (A) 81 %; Platelet Count 159 k/uL (150-450); RBC 4.49 m/uL (4.30-5.90); RDW 15.4 % (11.5-15.5); WBC 11.5 k/uL (3.8-10.6)
[2020-04-20 12:10] LABS: Phosphorus 10.2 mg/dL (2.5-4.5)
--- NOTE | 2020-04-20 12:11 | P.CNPUL ---
History of Present Illness Consult date: 04/20/20 History of present illness: A 80-year-old male patient who came into the emergency department this morning after he was found to be unresponsive between his couch and furniture as it seems that the patient had collapsed and had fell down on his face and the patient developed bruises and multiple areas of injuries on his for the cheek. For that reason he was brought into the emergency department. Apparently was having also some worsening shortness of breath. Denied having any chest pain or cough. No nausea vomiting diarrhea or abdominal pain. On admission, the patient's BP was 74/47 with a heart rate of about 100 with a intraventricular conduction delay and widened QRS. The patient had some ST segment ischemic changes and depressions or the anterolateral leads. X-ray of the pelvis was negative. Left lower extremity x-ray was not showing any fractures. CAT scan of the brain showed no acute processes within the brain and the cervical spine. The patient was in acute kidney failure and the creatinine was at 3.4. His first set of troponin came back elevated at 31.4. His lactic acid level was elevated at 3.3 and the patient's proBNP level was 35,700. Chest x-ray was consistent with pulmonary edema. He was transferred to the intensive care unit on 100% facemask, very lethargic, and tachypneic in a shock state where the patient had been on a combination of pressors including dopamine at 10 mics and norepinephrine infusion running at 10 g per minute and he had no urine output. His pulses were markedly diminished in lower extremity bilaterally and he was cold and clammy. This patient is known to have coronary artery disease and previous history of aortic valve stenosis. He is known to have hypertension and hyperlipidemia and hypothyroidism and peripheral vascular disease. The patient has a prosthetic left eye and is hard of hearing. He was in the hospital back in 04/12/2020. He came in at that time for similar problems of syncope. He had loss in consciousness and was attributed to his cardiac disease and was being worked up for cardiac surgery and had a consultation with cardiothoracic surgery. Note that at that time a CLAUDIA was done demonstrating severe impairment of LV function with an ejection fraction of 20-25%, moderate degree of left ventricular hypertrophy, hypokinetic left ventricular wall motion and dilated left atrium, mild to moderate aortic regurgitation and moderate to severe aortic stenosis with a gradient of 87 across the aortic valve with a valve area of 1.4 cm. Also, the patient had moderate severe pulmonary hypertension with an RVSP of 54. As for his previous cardiac catheterization, the patient had a cath at [facility] in December 2019 showing triple-vessel disease and he was not back then to have severe aortic stenosis. As we were treating this patient, he became briefly bradycardic and lost his pulse and blood pressure. He received CPR for probably a few minutes during which he received a dose of epinephrine. He continued to have some shallow agonal breathing. Recovered pulse and blood pressure with a brief period of time. He was intubated and placed on a mechanical ventilator. He was started on epinephrine drip for blood pressure control. He is also on a combination of norepinephrine and dopamine for now. Still no urine output. Currently is on assist control mode of ventilation on a mechanical ventilator at the rate of 26 with a tidal volume of 500 and FiO2 of 20% with a PEEP of 5. Blood gases that was done post intubation showed a pH of 7.18 with a pCO2 of 31 and pO2 of 207. This was done 100% FiO2. The patient is unresponsive at this point in time, started on low-dose Diprivan for sedation and synchrony with the mechanical ventilator. Unable to contact the family at this point in time. Would like to get hold of the family to discuss CODE STATUS and condition. Review of Systems ROS unobtainable: due to endotracheal tube Past Medical History Past Medical History: Coronary Artery Disease (CAD), Heart Failure, GERD/Reflux, Hyperlipidemia, Hypertension, Myocardial Infarction ([place]), Syncope Additional Past Medical History / Comment(s): Aortic stenosis which is severe and this is associated with severe pulmonary hypertension, peripheral vascular disease, hypothyroidism, hyperlipidemia, hypertension, triple-vessel coronary artery disease, hard of hearing, prosthetic left eye History of Any Multi-Drug Resistant Organisms: None Reported Past Surgical History: Heart Catheterization Additional Past Surgical History / Comment(s): prosthetic left eye Additional Past Anesthesia/Blood Transfusion Reaction / Comment(s): Anesthesia insomnia, never recieved blood Past Psychological History: No Psychological Hx Reported Smoking Status: Never smoker Past Alcohol Use History: None Reported Past Drug Use History: None Reported - Past Family History Father Family Medical History: Renal Disease Mother Family Medical History: Congestive Heart Failure (CHF), Renal Disease Brother(s) Additional Family Medical History / Comment(s): Valve replacement Sister(s) Family Medical History: AICD/Pacemaker Medications and Allergies Home Medications Medication Instructions Recorded Confirmed Type RX: Aspirin EC [Ecotrin Low Dose] 81 mg PO HS 04/11/20 04/20/20 History RX: Atorvastatin [Lipitor] 40 mg PO HS 04/12/20 04/20/20 History RX: Famotidine [Pepcid] 20 mg PO HS 04/12/20 04/20/20 History RX: Levothyroxine Sodium 50 mcg PO DAILY 04/12/20 04/20/20 History [Synthroid] RX: Lisinopril [Prinivil] 5 mg PO HS 04/12/20 04/20/20 History RX: Metoprolol Succinate [Toprol 25 mg PO HS 04/12/20 04/20/20 History XL] RX: Multivitamin/Iron/Folic Acid 1 tab PO HS 04/12/20 04/20/20 History [Centrum Adults Tablet] RX: [place]-3 Fatty Acids/Fish Oil 1 cap PO HS 04/12/20 04/20/20 History [Fish Oil 1,000 mg Softgel] RX: Furosemide [Lasix] 80 mg PO BID@0900,1600 #30 tab 04/17/20 04/20/20 Rx RX: Nitroglycerin Sl Tabs 0.4 mg SUBLINGUAL Q5M PRN #20 tab 04/17/20 04/20/20 Rx [Nitrostat] RX: Spironolactone [Aldactone] 25 mg PO DAILY #30 tab 04/17/20 04/20/20 Rx Allergies Allergy/AdvReac Type Severity Reaction Status Date / Time No Known Allergies Allergy Verified 04/20/20 04:09 Physical Exam Vitals: Vital Signs Temp Pulse Resp BP Pulse Ox 04/20/20 11:30 163 H 26 H 90 L 04/20/20 11:15 152 H 26 H 91/57 04/20/20 11:00 140 H 26 H 91/55 04/20/20 10:45 124 H 12 73/54 81 L 04/20/20 10:30 135 H 12 73/24 71 L 04/20/20 10:15 101 H 23 88/57 04/20/20 10:00 112 H 31 H 70/53 95 04/20/20 09:45 110 H 21 80/59 94 L 06/24/20 09:30 110 H 22 84/39 94 L 04/20/20 09:15 112 H 18 86/61 96 04/20/20 09:00 113 H 27 H 63/52 99 04/20/20 08:45 109 H 20 144/131 93 L 04/20/20 08:30 114 H 26 H 118/98 97 04/20/20 08:15 112 H 20 96/73 04/20/20 08:10 113 H 25 H 96/73 04/20/20 08:05 111 H 16 77/46 04/20/20 08:00 110 H 26 H 97/72 98 04/20/20 07:50 111 H 21 81/56 04/20/20 07:45 106 H 27 H 53/27 04/20/20 06:15 100 18 74/54 95 04/20/20 06:00 100 18 68/49 92 L 04/20/20 05:45 92 19 57/43 92 L 04/20/20 05:30 90 20 71/51 95 04/20/20 05:15 86 20 76/45 94 L 04/20/20 05:00 84 20 78/60 94 L 04/20/20 04:45 89 20 96/80 94 L 04/20/20 04:30 90 20 60/38 92 L 04/20/20 04:15 92 22 70/52 94 L 04/20/20 04:05 97.7 F 96 18 74/47 95 Intake and Output 04/19/20 04/20/20 04/20/20 22:59 06:59 14:59 Intake Total 2316.004 Output Total 50 Balance 2266.004 Intake: IV 2280 Sodium Chloride 0.9% 1, 2280 000 ml @ 75 mls/hr IV . [id number] STA Rx#:[id number] Intake, IV Titration 36.004 Amount DOPamine DRIP 800 mg In 20.27 Dextrose/Water 1 250ml. bag @ 5 MCG/KG/MIN 8.505 mls/hr IV .Q24H ONE Rx#: [id number] Norepinephrine 32 mg In 15.734 Sodium Chloride 0.9% 218 ml @ 0.05 MCG/KG/MIN 2. 126 mls/hr IV .Q24H ONE Rx#:[id number] Output: Urine 50 Other: Weight 90.718 kg ABP, PAP, CO, CI - Last 8 Hours Arterial Blood Pressure 71/50 Arterial Blood Pressure 74/51 Arterial Blood Pressure 73/48 Gen. appearance intubated, comfortable active distress such as a mechanical ventilator. He has an ecchymosis along his left forehead and the face related to recent trauma in the fall. Orogastric and tracheal tube are both in place. Head exam was generally normal. There was no scleral icterus or corneal arcus. Mucous membranes were moist. Ecchymosis of the left forehead and the face Neck was supple and without jugular venous distension, thyromegaly, or carotid bruits. Carotids were easily palpable bilaterally. There was no adenopathy. Lungs sounds are diminished bilaterally along with scattered rhonchi and scattered expiratory wheezes throughout the lung his bilaterally. Heart sounds are distant, tachycardic, there is an S3 gallop, regular, no significant murmurs could be appreciated. Abdominal exam revealed normal bowel sounds. The abdomen was soft, non-tender, and without masses, organomegaly, or appreciable enlargement of the abdominal aorta. Extremities are cold and clammy and there are diminished pulses in all 4 extremities bilaterally. No cyanosis or clubbing at this point in time. Neurologic the patient is sedated, comfortable. Motor function cannot be assess ed. Cranial nerves of grossly intact. Skin shows areas of ecchymosis over the left lower extremity and left face and forehead related to trauma. No open wounds or sores. No cellulitis. Results - Laboratory Findings CBC and BMP: 04/20/20 08:30 04/20/20 04:18 ABG ABG pH 7.18 (7.35-7.45) L* 04/20/20 10:56 ABG pCO2 31 mmHg (35-45) L 04/20/20 10:56 ABG pO2 207 mmHg (83-108) H 04/20/20 10:56 ABG O2 Saturation 98.6 % (94-97) H 04/20/20 10:56 PT/INR, D-dimer PT 11.7 sec (9.0-12.0) 04/20/20 11:08 INR 1.2 (<1.2) H 04/20/20 11:08 Abnormal lab findings: Abnormal Labs 04/20/20 04/20/20 04/20/20 04:18 04:18 04:18 WBC RBC 3.06 L Hgb 9.0 L D Hct 28.7 L MCHC RDW 15.7 H Plt Count 123 L Neutrophils # Lymphocytes # 0.5 L Monocytes # PT 12.2 H INR 1.2 H APTT 32.7 H ABG pH ABG pCO2 ABG pO2 ABG HCO3 ABG Total CO2 ABG O2 Saturation Carbon Dioxide 17 L BUN 75 H Creatinine 3.42 H Glucose 137 H POC Glucose (mg/dL) Plasma Lactic Acid Christian Calcium 6.8 L Phosphorus 6.5 H AST 456 H ALT 166 H Creatine Kinase 729 H Troponin I Total Protein 5.6 L Albumin 2.8 L Urine Protein Urine Blood Ur Leukocyte Esterase Urine WBC Ur Squamous Epith Cells Urine Sperm Crossmatch 04/20/20 04/20/20 04/20/20 04:18 04:18 04:18 WBC RBC Hgb Hct MCHC RDW Plt Count Neutrophils # Lymphocytes # Monocytes # PT INR APTT ABG pH ABG pCO2 ABG pO2 ABG HCO3 ABG Total CO2 ABG O2 Saturation Carbon Dioxide BUN Creatinine Glucose POC Glucose (mg/dL) Plasma Lactic Acid Christian 3.3 H* Calcium Phosphorus AST ALT Creatine Kinase Troponin I 31.400 H* Total Protein Albumin Urine Protein Urine Blood Ur Leukocyte Esterase Urine WBC Ur Squamous Epith Cells Urine Sperm Crossmatch See Detail 04/20/20 04/20/20 04/20/20 04:54 07:42 08:30 WBC RBC Hgb Hct MCHC RDW Plt Count Neutrophils # Lymphocytes # Monocytes # PT INR APTT ABG pH ABG pCO2 ABG pO2 ABG HCO3 ABG Total CO2 ABG O2 Saturation Carbon Dioxide BUN Creatinine Glucose POC Glucose (mg/dL) 148 H Plasma Lactic Acid Christian 2.8 H* Calcium Phosphorus AST ALT Creatine Kinase Troponin I Total Protein Albumin Urine Protein 3+ H Urine Blood Small H Ur Leukocyte Esterase Moderate H Urine WBC 18 H Ur Squamous Epith Cells 7 H Urine Sperm Many H Crossmatch 04/20/20 04/20/20 04/20/20 08:30 08:39 10:56 WBC 11.4 H RBC Hgb Hct MCHC 29.9 L RDW Plt Count Neutrophils # 9.0 H Lymphocytes # 0.9 L Monocytes # 1.1 H PT INR APTT ABG pH 7.29 L 7.18 L* ABG pCO2 31 L ABG pO2 207 H ABG HCO3 18 L 12 L ABG Total CO2 13 L ABG O2 Saturation 98.6 H Carbon Dioxide BUN Creatinine Glucose POC Glucose (mg/dL) Plasma Lactic Acid Christian Calcium Phosphorus AST ALT Creatine Kinase Troponin I Total Protein Albumin Urine Protein Urine Blood Ur Leukocyte Esterase Urine WBC Ur Squamous Epith Cells Urine Sperm Crossmatch 04/20/20 11:08 WBC RBC Hgb Hct MCHC RDW Plt Count Neutrophils # Lymphocytes # Monocytes # PT INR 1.2 H APTT 30.4 H ABG pH ABG pCO2 ABG pO2 ABG HCO3 ABG Total CO2 ABG O2 Saturation Carbon Dioxide BUN Creatinine Glucose POC Glucose (mg/dL) Plasma Lactic Acid Christian Calcium Phosphorus AST ALT Creatine Kinase Troponin I Total Protein Albumin Urine Protein Urine Blood Ur Leukocyte Esterase Urine WBC Ur Squamous Epith Cells Urine Sperm Crossmatch - Diagnostic Findings Chest x-ray: image reviewed Assessment and Plan Plan: 1 acute non-ST segment elevation myocardial infarctions in a patient with known history of severe triple-vessel coronary artery disease. 2 cardiogenic shock as the patient is known to have cardiomyopathy with an ejection fraction of 20-25% further decompensated by an acute myocardial infarction/non-STEMI. 3 hypotension secondary to cardiogenic shock and the patient on a combination of pressors for now 4 acute hypoxic respiratory failure secondary to pulmonary edema, secondary to congestion heart failure 5 cardiac arrest/PEA for less than 5 minutes, requiring resuscitation with CPR and epinephrine 6 hypertension 7 severe aortic stenosis with secondary pulmonary hypertension 8 hyperlipidemia 9 peripheral vascular disease 10 history of syncope and fall secondary to aortic stenosis 11 acute kidney injury secondary to above, the patient is an aortic for now and he is not producing any urine output. 12 acute lactic acidosis secondary to above 13 metabolic acidosis secondary to above Plan Condition is critical Continue vent support and necessary ventilator changes were done and FiO2 is going to be weaned down to 60% IV fluids and the patient was given 2 L bolus and currently running at normal saline at the rate of 75 mL an hour Continue combination of pressors including epinephrine, norepinephrine and dopamine. Currently the patient is most responsive to epinephrine and this will be titrated up and we will gradually withdrawn with the norepinephrine. Discussed the case with cardiology. Not a candidate for any acute intervention such as cardiac catheterization, and aortic balloon pump or and Impela IV heparin Ultrasound of the kidneys Cardiology consult Nephrology consult Review blood work and electrolytes and troponin and a lactate Repeat echo cardiac exam showed significant impairment of the LV function Prognosis poor and we'll try to establish a CODE STATUS with the family once we are able to get hold of the family members.
--- NOTE | 2020-04-20 12:13 | P.PCN ---
Date of Procedure: 04/20/20 Preoperative Diagnosis: Acute hypoxic respiratory failure, cardiac arrest Postoperative Diagnosis: Acute hypoxic respiratory failure, cardiac arrest Procedure(s) Performed: Intubation and insertion of an arterial line catheter/femoral Anesthesia: local Surgeon: Leif Russell Pathology: other Condition: critical Disposition: ICU Operative Findings: Indication: Respiratory compromise. A time-out was completed verifying correct patient, procedure, site, positioning, and implant(s) or special equipment if applicable. The patient was positioned appropriately and a #8 endotracheal tube was placed under direct laryngoscopy. The tube was anchored at 22 cm at the teeth. Correct placement was confirmed by presence of bilateral breath sounds without air sounds in the abdomen on auscultation. An end-tidal CO2 monitor was also used to confirm tracheal placement of the ET tube. A chest x-ray was ordered to assess for pneumothorax and verify endotracheal tube placement. The patient tolerated the procedure well and there were no complications. Indication: Hemodynamic monitoring. A time-out was completed verifying correct patient, procedure, site, positioning, and implant(s) or special equipment if applicable. Allens test was performed to ensure adequate perfusion. The patients left groin groin was prepped and draped in sterile fashion. 1% Lidocaine was used to anesthetize the area. An 18G [place] arterial line was introduced into the left femoral artery. The catheter was threaded over the guide wire and the needle was removed with appropriate pulsatile blood return. Blood loss was minimal. The catheter was then sutured in place to the skin and a sterile dressing prasad lied. Perfusion to the extremity distal to the point of catheter insertion was checked and found to be adequate. The patient tolerated the procedure well and there were no complications.
[2020-04-20 12:58] LABS: Anisocytosis (M) Present; Poikilocytosis (M) Present
[2020-04-20] MEDS ORDERED: EPINEPHrine 4 MG in DEXTROSE 5% IN WATER 250 ML IV SCH ×2 (14:00)
[2020-04-20] MEDS ORDERED: CHLORHEXIDINE GLUCONATE 15 ML CUP MUCOUS MEM ONE ×2 (15:00→16:34)
--- NOTE | 2020-04-20 15:23 | CONS ---
CONSULTATION CHIEF COMPLAINT: Syncope. Florentin is a 80-year-old gentleman with history of severe aortic stenosis, ischemic cardiomyopathy and multivessel coronary artery disease who was recently admitted to hospital with syncope and was just discharged home. He comes back in having had another syncopal event at home. The patient states that he was sitting on his porch and passed out, fell down, and had ecchymosis over his face and leg. I recently performed a CLAUDIA and cardiac catheterization and found that the patient has severe triple-vessel coronary artery disease with severe aortic stenosis. The plan was to send him to Cardiothoracic Surgery once the COVID issues settle down. However, he came back in and was admitted to hospital, and at that time last week he was evaluated by Surgery here. He comes back in with another episode of syncope. The patient at the time of my evaluation is in cardiogenic shock. He has severe hypotension and has developed new renal failure. His BUN is 75, creatinine is 3.5, BUN has jumped from 41 to 75 in the last 3 days. His troponin is elevated at 31. It was 0.29 at last visit. BNP is elevated at 35,700. It was at 15,000 during last admission. Patient is currently on Levophed. Will increase the dose to maintain a systolic blood pressure of 100. Will hold the beta blockers, JAIME inhibitors and Aldactone that the patient is currently on. The patient seems alert and is able to talk. I have not been able to get in touch with his sister, who is the only family member he has. An EKG shows sinus rhythm, evidence of prior inferior wall myocardial infarction and ST-T wave changes in the precordial leads. Some of these changes were noted on the previous EKG. Once patient becomes more stable, I will probably transfer him to [facility]. He may need a TAVR and multivessel angioplasty or may require circulatory support while we are waiting for him to recover. PAST MEDICAL HISTORY: Past medical history is significant for aortic stenosis and multivessel coronary artery disease. MEDICATIONS: Medications include Aldactone, Toprol, Prinivil, Synthroid, Lasix, Pepcid, Lipitor and aspirin. ALLERGIES: There are NO KNOWN DRUG ALLERGIES. FAMILY HISTORY: Negative for premature coronary artery disease. SOCIAL HISTORY: Negative for current smoking, EtOH abuse or drug abuse. REVIEW OF SYSTEMS: HEENT is unremarkable. CARDIAC: As described above. RESPIRATORY: As described above. GI: Negative. GENITOURINARY: Significant for renal failure. PSYCHOSOCIAL: Negative. ENDOCRINE: Negative. DERMATOLOGY: Negative. CONSTITUTIONAL: Significant for fatigue, tiredness, not feeling well. PHYSICAL EXAMINATION: On exam, heart rate is 110 beats per minute. Blood pressure is 96/70, respiratory rate is 18. Chest exam reveals diminished air entry with occasional rhonchi. Heart exam reveals first and second heart sounds. Ejection systolic murmur in the aortic area. Abdomen is soft. Examination of extremities reveals bilateral pitting edema. Peripheral pulses are not palpable. LABS: Labs show a hemoglobin of 9, platelet count is 125, potassium is 4.2, BUN is 75, creatinine is 3.4. Troponin is elevated. BNP is 35,000. ASSESSMENT: 1. Severe aortic stenosis. 2. Multivessel coronary artery disease. 3. Acute uij-EZ-pothprn elevation myocardial infarction. 4. Cardiogenic shock. 5. Anemia. PLAN: Will continue the patient with supportive care at this time. I am going to hold off on intravenous heparin, given the sudden drop in his hemoglobin from 13 to 9 in the last 2 to 3 days and evidence of soft tissue injury involving the left leg. I will continue with the Levophed. I will ask Nephrology to evaluate him. We will consider transferring him to [facility]. MMODL / BARRONN: [id number] /
[2020-04-20] MEDS ORDERED: SODIUM BICARB 8.4% 50 ML SYR (1 MEQ/ML) IV STA ×2 (15:40→15:41)
[2020-04-20] MEDS ORDERED: DEXTROSE 5% IN WATER 1,000 ML with SODIUM BICARB (1 MEQ/ML) 150 ML IV SCH (16:00)
[2020-04-20 16:23] LABS: % Iron Saturation 15.07 (15.00-50.00)
[2020-04-20 16:44] LABS: ABG Base Excess -20.8 mmol/L; ABG Oxygen Saturation 99.6 % (94-97); ABG PCO2 26 mmHg (35-45); ABG PO2 >400 mmHg (83-108); ABG TCO2 9 mmol/L (19-24); Allen Test Performed? Yes
[2020-04-20 16:58] LABS: Ferritin 2465.4 ng/mL (22.0-322.0); Folate, Serum 20.9 ng/mL
[2020-04-20 16:58] LABS: ABG HCO3 8 mmol/L (21-25); ABG PH 7.12 (7.35-7.45)
[2020-04-20 17:31] VITALS: TEMP 35.8
[2020-04-20 18:16] LABS: Calcium 8.2 mg/dL (8.4-10.2)
[2020-04-20 18:26] VITALS: PULSE 0; RESP 26
[2020-04-20 18:36] LABS: Potassium 6.9 mmol/L (3.5-5.1)
[2020-04-20] MEDS ORDERED: ATORVASTATIN 40 MG TAB PO SCH (21:00)
[2020-04-20] MEDS ORDERED: ASPIRIN 81 MG PO SCH (21:00)
[2020-04-20] MEDS ORDERED: PANTOPRAZOLE 40 MG/10 ML VIAL IV SCH (21:00)
--- NOTE | 2020-04-20 23:59 | P.DS ---
Providers Date of admission: 04/20/20 06:21 Attending physician: Maria Ines Boyle Consults: 04/20/20 06:21 Consult Physician Routine Consulting Provider: Leif Russell Consult Reason/Comments: ICU Do you want consulting provider notified?: Yes Consult Physician Urgent Consulting Provider: Jack Cerda Consult Reason/Comments: ELEVtROP Do you want consulting provider notified?: Yes 04/20/20 08:53 Consult Physician Urgent Consulting Provider: Sonido Lopez Consult Reason/Comments: acute renal failure Do you want consulting provider notified?: Already Contacted Primary care physician: [facility] Course: Diagnoses: Cardiogenic shock, with acute on chronic systolic CHF Coronary artery disease, rule out acute coronary syndrome with elevated troponin Possible Aortic stenosis Acute Anemia, unknown etiology anuric Acute kidney injury Elevated Lactic acid Possible acute urinary tract infection Fall and syncope Gastroesophageal reflux disease Hypertension Hyperlipidemia History of aortic stenosis History of syncope Hospital course: This is a pleasant 80 years old male with past medical history of coronary artery disease, heart failure, gastroesophageal reflux disease, hyperlipidemia, hypertension, severe aortic stenosis, syncope. He is a patient of Josemanuel Varghese. He was in the hospital 3 days ago for syncope secondary to severe aortic stenosis, at that time cardiovascular surgeon evaluated the patient and found him high-risk for surgical intervention, patient was discharged home and he is particular syncope attack . Patient is found unresponsive between his couch and furniture, He admitted to the hospital and into intensive care unit in critical condition, he was then Frances shock needed pressors support, heart failure, acute anemia, acute anuric kidney injury, elevated lactic acid and possible UTI. Patient has been evaluated by several consultants including pulmonary/critical care, registered massage therapist and firearms model maker, please refer to their notes for more details. Within a few hours patient coded and he got resuscitated, however within the same day he . Patient Condition at Discharge: Serious Plan - Discharge Summary New Discharge Prescriptions: No Action Aspirin EC [Ecotrin Low Dose] 81 mg PO HS [place]-3 Fatty Acids/Fish Oil [Fish Oil 1,000 mg Softgel] 1 cap PO HS Metoprolol Succinate [Toprol XL] 25 mg PO HS Lisinopril [Prinivil] 5 mg PO HS Levothyroxine Sodium [Synthroid] 50 mcg PO DAILY Famotidine [Pepcid] 20 mg PO HS Atorvastatin [Lipitor] 40 mg PO HS Multivitamin/Iron/Folic Acid [Centrum Adults Tablet] 1 tab PO HS Spironolactone [Aldactone] 25 mg PO DAILY #30 tab Furosemide [Lasix] 80 mg PO BID@0900,1600 #30 tab Nitroglycerin Sl Tabs [Nitrostat] 0.4 mg SUBLINGUAL Q5M PRN #20 tab PRN Reason: Chest Pain Discharge Medication List Aspirin EC [Ecotrin Low Dose] 81 mg PO HS 04/11/20 [History] Atorvastatin [Lipitor] 40 mg PO HS 04/12/20 [History] Famotidine [Pepcid] 20 mg PO HS 04/12/20 [History] Levothyroxine Sodium [Synthroid] 50 mcg PO DAILY 04/12/20 [History] Lisinopril [Prinivil] 5 mg PO HS 04/12/20 [History] Metoprolol Succinate [Toprol XL] 25 mg PO HS 04/12/20 [History] Multivitamin/Iron/Folic Acid [Centrum Adults Tablet] 1 tab PO HS 04/12/20 [History] [place]-3 Fatty Acids/Fish Oil [Fish Oil 1,000 mg Softgel] 1 cap PO HS 04/12/20 [History] Furosemide [Lasix] 80 mg PO BID@0900,1600 #30 tab 04/17/20 [Rx] Nitroglycerin Sl Tabs [Nitrostat] 0.4 mg SUBLINGUAL Q5M PRN #20 tab 04/17/20 [Rx] Spironolactone [Aldactone] 25 mg PO DAILY #30 tab 04/17/20 [Rx] Follow up Appointment(s)/Referral(s): Josemanuel Xiong MD [Primary Care Provider] - 1-2 days Discharge Disposition: - Preliminary Cause of Preliminary Cause of : Severe aortic stenosis
--- NOTE | 2020-04-22 15:14 | CDI ---
Documentation Clarification Form Date: 04/22/20 From: Rachael Barron CCS Phone: If you have a question about this query, please contact Zoë Ervin, Subscription Crew Leader at [phone] between 8am and 5pm. Admit Date: 04/20/20 Discharge Date:04/20/20 Patient Name: Florentin Dunbar Visit Number: [id number] ATTENTION: The Clinical Documentation Specialists (CDI) and [facility] Coding Staff appreciate your assistance in clarifying documentation. Please respond to the clarification below the line at the bottom and electronically sign. The CDI & [facility] Coding staff will review the response and follow-up if needed. Please note: Queries are made part of the Legal Health Record. If you have any questions, please contact the author of this message via ITS. Dear Dr. Castro, The patient presented with the following cardiogenic shock, acute/chronic CHF. History/Risk Factors: CHF, HTN, QUIQUE, UTI, Acidosis, Acute respiratory failure, CAD Clinical Indicators: Acidosis, Tachycardia, Acute respiratory failure, QUIQUE WBC: 11.4, 11.5 Lactic Acid: 3.3, 2.8 Vital Signs: BP 81/56, WV 111, RR 26, Temp 97.7 Other Clinical Indicators: Cardiogenic shock Treatment: Levophed 32 mg IV, Rocephin 1 gm IVPB In your professional opinion, can you please clarify if these clinical indicators signify? Sepsis SIRS Abnormal labs Other, please specify Unable to determine no sepsis MTDD
== END 2020-04-20 20:48 | disposition expired ==
LOC: EC 04:03 → 2SICU 06:21
PROVIDERS: ADMIT Hospitalist; ATTEND Hospitalist
PROC: 02HV33Z Insertion of Infusion Device into Superior Vena Cava, Percutaneous Approach (ICD-10-PCS; principal; 2020-04-20)
PROC: 3E043XZ Introduction of Vasopressor into Central Vein, Percutaneous Approach (ICD-10-PCS; 2020-04-20)
PROC: 5A12012 Performance of Cardiac Output, Single, Manual (ICD-10-PCS; 2020-04-20)
PROC: 0BH17EZ Insertion of Endotracheal Airway into Trachea, Via Natural or Artificial Opening (ICD-10-PCS; 2020-04-20)
PROC: 5A1935Z Respiratory Ventilation, Less than 24 Consecutive Hours (ICD-10-PCS; 2020-04-20)
PROC: 04HY32Z Insertion of Monitoring Device into Lower Artery, Percutaneous Approach (ICD-10-PCS; 2020-04-20)
PROC: 4A133B1 Monitoring of Arterial Pressure, Peripheral, Percutaneous Approach (ICD-10-PCS; 2020-04-20)
PROC: 4A133J1 Monitoring of Arterial Pulse, Peripheral, Percutaneous Approach (ICD-10-PCS; 2020-04-20)
PROC: 0D9670Z Drainage of Stomach with Drainage Device, Via Natural or Artificial Opening (ICD-10-PCS; 2020-04-20)
DX: I11.0 Hypertensive heart disease with heart failure (principal); I21.4 Non-ST elevation (NSTEMI) myocardial infarction; J96.01 Acute respiratory failure with hypoxia; N17.0 Acute kidney failure with tubular necrosis; E87.2 Acidosis; N39.0 Urinary tract infection, site not specified; I50.23 Acute on chronic systolic (congestive) heart failure; I42.9 Cardiomyopathy, unspecified; Z11.59 Encounter for screening for other viral diseases; R57.0 Cardiogenic shock; Z66 Do not resuscitate; I27.29 Other secondary pulmonary hypertension; I73.9 Peripheral vascular disease, unspecified; K21.9 Gastro-esophageal reflux disease without esophagitis; I25.10 Atherosclerotic heart disease of native coronary artery without angina pectoris; E78.5 Hyperlipidemia, unspecified; R29.6 Repeated falls; I35.2 Nonrheumatic aortic (valve) stenosis with insufficiency; S00.83XA Contusion of other part of head, initial encounter; S80.12XA Contusion of left lower leg, initial encounter; D64.9 Anemia, unspecified; E83.39 Other disorders of phosphorus metabolism; W18.30XA Fall on same level, unspecified, initial encounter; E03.9 Hypothyroidism, unspecified; H91.90 Unspecified hearing loss, unspecified ear; R00.1 Bradycardia, unspecified; I45.9 Conduction disorder, unspecified; G47.00 Insomnia, unspecified; Z79.899 Other long term (current) drug therapy; Z79.890 Hormone replacement therapy; Z79.82 Long term (current) use of aspirin; I25.2 Old myocardial infarction; Z97.0 Presence of artificial eye; Z82.49 Family history of ischemic heart disease and other diseases of the circulatory system; Z84.1 Family history of disorders of kidney and ureter
CPT/HCPCS: 36415; 36556; 36600; 70450; 71045; 72125; 72170; 76770; 80048; 80053; 81001; 82550; 82607; 82728; 82746; 82805; 83540; 83550; 83605; 83735; 83880; 84100; 84145; 84484; 85025; 85610; 85730; 86850; 86900; 86901; 87086; 93005; 93306; 93970; 94002; 96361; 96365; 96366; 96368; 96375; 99291